=== PATIENT | female | born 1985 ===

== ENCOUNTER 2020-12-18 11:21 | Outpatient (REF) | payer MEDICARE, MEDICAID, SELFPAY ==
[2020-12-19 09:15] LABS: BV Int Neg Control Negative (Negative); BV Int Pos Control Positive (Positive)
[2020-12-20 11:42] LABS: C. trachomatis RNA TMA NOT DETECTED (NOT DETECTED); N. gonorrhoeae RNA TMA NOT DETECTED (NOT DETECTED)
[2020-12-21 02:08] LABS: HPV mRNA E6/E7 rflx Not Detected (Not Detected)
== END 2020-12-18 11:22 | disposition home or self-care (01) ==
LOC: HO.LAB 11:21
PROVIDERS: PCP Family Medicine; Visit Provider Advanced Practice Midwife
DX: R10.2 Pelvic and perineal pain (principal); Z11.51 Encounter for screening for human papillomavirus (HPV); Z87.42 Personal history of other diseases of the female genital tract; Z80.3 Family history of malignant neoplasm of breast
CPT/HCPCS: 36415; 81025; 87480; 87491; 87510; 87591; 87624; 87660; 88142; 99202

== ENCOUNTER 2021-01-22 11:22 | Outpatient (REF) | payer MEDICARE, MEDICAID, SELFPAY ==
--- NOTE | ~2021-01-22 | US_ITS ---
EXAMINATION: US PELVIS COMPLETE US PELVIS TRANSVAGINAL CLINICAL INFORMATION: Pelvic pain. LMP 12/28/2020 COMPARISON: Multiple priors, most recent pelvic ultrasound dated 02/08/2019 TECHNIQUE: Transabdominal and transvaginal imaging was performed. FINDINGS: The uterus is retroverted of normal size and echogenicity measuring 9.4 x 5.4 x 6.3 cm. A regular homogeneous endometrium is identified measuring 1.1 cm. Both ovaries are of normal size and echogenicity. The right measures 4.7 x 2.2 x 2.3 cm for a volume of 12.5 mL. Probable involuting right ovarian corpus luteum measuring up to 2.3 cm. The left measures 1.9 x 2.3 x 1.3 cm for a volume of 3 mL. There is no pelvic free fluid. US/US pelvic complete IMPRESSION: Sonographically unremarkable uterus and endometrium. Probable involuting right ovarian corpus luteum measuring 2.3 cm. No followup imaging recommended. Sonographically unremarkable left ovary.
--- NOTE | ~2021-01-22 | US_ITS ---
EXAMINATION: US PELVIS COMPLETE US PELVIS TRANSVAGINAL CLINICAL INFORMATION: Pelvic pain. LMP 12/28/2020 COMPARISON: Multiple priors, most recent pelvic ultrasound dated 02/08/2019 TECHNIQUE: Transabdominal and transvaginal imaging was performed. FINDINGS: The uterus is retroverted of normal size and echogenicity measuring 9.4 x 5.4 x 6.3 cm. A regular homogeneous endometrium is identified measuring 1.1 cm. Both ovaries are of normal size and echogenicity. The right measures 4.7 x 2.2 x 2.3 cm for a volume of 12.5 mL. Probable involuting right ovarian corpus luteum measuring up to 2.3 cm. The left measures 1.9 x 2.3 x 1.3 cm for a volume of 3 mL. There is no pelvic free fluid. US/US transvaginal IMPRESSION: Sonographically unremarkable uterus and endometrium. Probable involuting right ovarian corpus luteum measuring 2.3 cm. No followup imaging recommended. Sonographically unremarkable left ovary.
== END 2021-01-22 11:23 | disposition home or self-care (01) ==
LOC: HO.US 11:22
PROVIDERS: PCP Family Medicine; Visit Provider Family Medicine
DX: R10.2 Pelvic and perineal pain (principal); Z87.42 Personal history of other diseases of the female genital tract
CPT/HCPCS: 76830; 76856

== ENCOUNTER → 2021-02-05 10:50 | Outpatient (BNVA) | payer MEDICARE, MEDICAID, SELFPAY | PROVIDERS: PCP Family Medicine; Visit Provider Advanced Practice Midwife | DX: R10.2 Pelvic and perineal pain (principal); Z87.42 Personal history of other diseases of the female genital tract; Z80.3 Family history of malignant neoplasm of breast; Z30.09 Encounter for other general counseling and advice on contraception | CPT/HCPCS: 99212 ==

== ENCOUNTER → 2021-04-21 14:15 | Outpatient (BNVA) | payer MEDICARE, MEDICAID, SELFPAY | PROVIDERS: Visit Provider Advanced Practice Midwife | DX: Z30.430 Encounter for insertion of intrauterine contraceptive device (principal); Z30.09 Encounter for other general counseling and advice on contraception | CPT/HCPCS: 58300; 81025; 99212; J7300 ==

== ENCOUNTER 2021-05-01 08:10 | Outpatient (REF) | payer MEDICARE, MEDICAID, SELFPAY ==
--- NOTE | ~2021-05-01 | US_ITS ---
EXAMINATION: US ABDOMEN COMPLETE CLINICAL INFORMATION: Splenomegaly. COMPARISON: Ultrasound abdomen complete 07/28/2016. Ultrasound abdomen limited 01/06/2016. CT abdomen and pelvis 09/19/2015. X-ray abdomen 08/16/2013. MRI abdomen 07/12/2012. TECHNIQUE: Real-time imaging of the abdominal viscera. FINDINGS: PANCREAS: Normal. ABDOMINAL AORTA: The proximal, mid, and distal segments are normal in caliber. INFERIOR VENA CAVA: Visualized portions are normal. LIVER: Normal. The liver is normal in size. The liver contour is normal. Parenchymal echogenicity is normal. No focal hepatic lesion. There is no intrahepatic biliary duct dilatation seen. GALLBLADDER: Surgically absent. COMMON BILE DUCT: Normal in caliber measuring 0.5 cm in diameter. RIGHT KIDNEY: Normal. No hydronephrosis. No renal calculi or focal parenchymal lesions. The kidney measures 11.5 cm in maximum dimension. LEFT KIDNEY: Normal. No hydronephrosis. No renal calculi or focal parenchymal lesions. The kidney measures 12.3 cm in maximum dimension. SPLEEN: Mildly enlarged. The spleen measures 13.8 cm in maximum dimension. This compares with 15.7 cm on ultrasound of 07/28/16, 16.2 cm on 01/09/[address] scan of 09/19/15. FREE FLUID: None. US/US abdomen complete IMPRESSION: 1. Persistent mild splenomegaly with slow interval improvement. 2. Otherwise unremarkable examination.
== END 2021-05-01 08:11 | disposition home or self-care (01) ==
LOC: HO.US 08:10
PROVIDERS: PCP Family Medicine; Visit Provider Internal Medicine Medical Oncology
DX: R16.1 Splenomegaly, not elsewhere classified (principal)
CPT/HCPCS: 76700

== ENCOUNTER → 2021-07-10 09:47 | Outpatient (BNVA) | payer MEDICARE, MEDICAID, SELFPAY | PROVIDERS: Visit Provider Advanced Practice Midwife ==

== ENCOUNTER → 2021-11-27 13:07 | Outpatient (BNVA) | payer MEDICARE, MEDICAID, SELFPAY | PROVIDERS: Visit Provider Advanced Practice Midwife | DX: R10.2 Pelvic and perineal pain (principal); Z97.5 Presence of (intrauterine) contraceptive device; Z87.42 Personal history of other diseases of the female genital tract; Z98.891 History of uterine scar from previous surgery | CPT/HCPCS: 81003; 81025; 99212 ==

== ENCOUNTER 2021-12-21 12:55 | Outpatient (REF) | payer MEDICARE, MEDICAID, SELFPAY ==
--- NOTE | ~2021-12-21 | US_ITS ---
EXAM: Pelvic Ultrasound CLINICAL INDICATION: IUD COMPARISON: Pelvic ultrasound 01/22/2021 TECHNIQUE: The pelvis was evaluated using transabdominal and transvaginal imaging. FINDINGS: The uterus measures 10.2 x 4.6 x 7.3 cm in longitudinal by AP by transverse dimension. The endometrial stripe measures 1.5 cm. IUD identified within the endometrium, however, it is centered within the lower uterine segment with the arms located approximately 2.5 cm below the tip of the fundus. The left ovary measures approximately 2.5 x 1.8 x 2.2 cm and contains an approximately 1 cm cyst versus dominant follicle. The right ovary measures approximately 3.9 x 2.6 x 3.3 cm and contains a simple appearing 2.4 cm cyst. There are no abnormal adnexal masses. There is no free fluid in the pelvis. US/US pelvic and transvaginal IMPRESSION: IUD identified within the endometrium, however, it is centered within the lower uterine segment with the arms located approximately 2.5 cm below the tip of the fundus. Repositioning likely warranted. [employer]TA[employer] SALESPERSON consultation recommended.
== END 2021-12-21 12:56 | disposition home or self-care (01) ==
LOC: HO.US 12:55
PROVIDERS: PCP Family Medicine; Visit Provider Advanced Practice Midwife
DX: R10.2 Pelvic and perineal pain (principal); Z87.42 Personal history of other diseases of the female genital tract; Z98.890 Other specified postprocedural states; Z98.891 History of uterine scar from previous surgery; Z97.5 Presence of (intrauterine) contraceptive device
CPT/HCPCS: 76830; 76856

== ENCOUNTER → 2021-12-22 11:30 | Outpatient (BNVA) | payer MEDICARE, MEDICAID, SELFPAY | PROVIDERS: PCP Family Medicine; Visit Provider Advanced Practice Midwife | DX: T83.9XXA Unspecified complication of genitourinary prosthetic device, implant and graft, initial encounter (principal); Z32.02 Encounter for pregnancy test, result negative | CPT/HCPCS: 81025; 99212 ==

== ENCOUNTER → 2022-04-19 08:56 | Outpatient (BNVA) | payer MEDICARE, MEDICAID, SELFPAY | PROVIDERS: PCP Family Medicine; Visit Provider Advanced Practice Midwife | DX: T83.9XXA Unspecified complication of genitourinary prosthetic device, implant and graft, initial encounter (principal) | CPT/HCPCS: 58301; 99212 ==

== ENCOUNTER 2022-09-01 09:20 | Outpatient (REF) | payer MEDICARE, MEDICAID, SELFPAY ==
--- NOTE | ~2022-09-01 | US_ITS ---
EXAMINATION: US ABDOMEN COMPLETE CLINICAL INFORMATION: Left upper quadrant pain. Check enlarged spleen. COMPARISON: Ultrasound abdomen complete 05/01/2021 and 07/28/2016. CT abdomen and pelvis 09/19/2015. X-ray abdomen 08/16/2013. TECHNIQUE: Real-time imaging of the abdominal viscera. FINDINGS: PANCREAS: Normal. ABDOMINAL AORTA: The proximal, mid, and distal segments are normal in caliber. INFERIOR VENA CAVA: Visualized portions are normal. LIVER: Normal. The liver is normal in size. The liver contour is normal. Parenchymal echogenicity is normal. No focal hepatic lesion. There is no intrahepatic biliary duct dilatation seen. GALLBLADDER: Surgically absent. COMMON BILE DUCT: Normal in caliber measuring 0.6 cm in diameter. RIGHT KIDNEY: Normal. No hydronephrosis. No renal calculi or focal parenchymal lesions. The kidney measures 11.4 cm in maximum dimension. LEFT KIDNEY: Difficult to visualize. No hydronephrosis. No renal calculi or focal parenchymal lesions. The kidney measures 10.8 cm in maximum dimension. SPLEEN: The spleen is slightly enlarged. The spleen measures 13.5 cm in maximum dimension. FREE FLUID: None. US/US abdomen complete IMPRESSION: Slightly enlarged spleen similar to previous exam.
== END 2022-09-01 09:21 | disposition home or self-care (01) ==
LOC: HO.US 09:20
PROVIDERS: PCP Family Medicine; Visit Provider Internal Medicine Medical Oncology
DX: R16.1 Splenomegaly, not elsewhere classified (principal); R10.12 Left upper quadrant pain
CPT/HCPCS: 76700

== ENCOUNTER → 2024-01-09 13:42 | Outpatient (BNVA) | payer MEDICARE, MEDICAID, SELFPAY | PROVIDERS: PCP Family Medicine; Visit Provider Advanced Practice Midwife ==

== ENCOUNTER 2024-02-03 12:58 | Outpatient (AMB) | payer MEDICARE, MEDICAID, SELFPAY ==
--- NOTE | 2024-02-03 13:12 | MHC.OFFVIS ---
Intake Vital Signs 02/03/24 13:26 Height 5 ft 2 in Weight 126 lb BMI 23.0 BP 110/68 Intake Visit Reasons: Mirena Insertion Intake Note: Patient here for IUD insertion Body Maker Machine Setter Required: No Information Interpreted: non-clinical & clinical Director Chemistry: Director Chemistry Present (Roxie Pedro [place]) Accompanied by: Self / Same As Patient Allergies No Known Allergies Allergy (Unknown, Verified 02/03/24 13:29) Is last menstrual period known: Yes Last menstrual period: 01/31/24 HPI Mirena Insertion HPI Details Patient is here for Mirena IUD insertion she says she has a history of endometriosis and somebody talked to her about surgery and also she was talking about a tubal ligation but she was too afraid and she had a Mirena before when she was young but she would like it again and this was discussed at the last visit she also has dermatologic concerns because she gets skin changes with her. Possibly consistent with melasma and she seen a gps field data collector who told her it was related to her hormones but she is wondering more about that and I told her this is a conversation for her gps field data collector that hormonal changes will occur all throughout one's life and all throughout the cycle and it is not possible to completely turn them off they control everything in our body's function in particular in this case she is asking for something hormonal to not get and there will be some side effects from a Mirena IU S in particular I discussed sometimes the decreased libido the decreased periods and other changes that are commonly experienced if she truly has endometriosis then this may make the discomfort of her periods better. It was a very smooth insertion of a Mirena IU S into a 9 cm uterus which sounded extremely smoothly. Her menses was exceptionally heavy today with some clots prior to the insertion. She did say that if this menses was late. Cultures were done just before insertion as they had not been done since 2020. She believes she has a future appointment with Dr. Louis as well to discuss the endometriosis and other issues. She will check on that as well Reviewed to call if she is having fever severe pain any signs or symptoms of expulsion of the Mirena I recommend she not have sex until the end of menses or at least 3 days. [facility] Medical History (Updated 02/03/24 @ 14:18 by Marycruz Redd CNM) Cervical cancer screening History of gallbladder disease delivery delivered Melasma Splenomegaly Gastroesophageal reflux Irritable bowel Dermatitis Depression Surgical History Hx of eye surgery Family History Mother HTN (hypertension) Father Diabetes Maternal Aunt Family history of breast cancer in female Maternal Aunt Family history of breast cancer in female Social History Household Members: Spouse and Children Housing: House Are you a primary healthcare associate to a significant other at home: No Do you presently have visiting nurse or other home services: No Alcohol intake: never Patient Tobacco Use Status: Never used Tobacco service: No Current occupational status: unemployed Gender identity: Female Female Reproductive History Menstrual Age of Menarche: 11 Date of last menstrual period: 01/31/24 Physical Exam Vital Signs: Last Vital Signs BP 110/68 02/03/24 13:26 BMI result Body Mass Index 23.0 Office Procedures IUD Insert/Removal Details Details: ---Patient is here for her IUD insertion. Patient had very heavy menses with clots in vagina clots swabbed out of vagina and testing done for STIs per protocol before insertion of the Mirena. ---The cervix was cleaned with Betadine. Tenaculum was placed on the cervix slowly to minimize cramping. The uterus was sounded slowly and gently she show a measurement of 9 cm. The IUD was removed from its package, after checking identifying information and lot dates and expiration dates and and gently inserted into the os, as per the IUD insertion procedure. The strings were then trimmed to 3-4 centimetres. The tenaculum was removed and gentle pressure applied with a swab, until any bleeding subsided from the tenaculum sites. The speculum was gently removed. The patient sat up. I Reviewed what to expect, and what indications would necessitate a call. Pt to call for fever, untoward pain or cramping. I reviewed any appropriate backup method. Pt to return for recheck as scheduled. [id number] Insertion Procedure code (CPT) selection complete Office Meds Mirena 21 mcg/24 hours (8 yrs) 52 mg intrauterine device Performing Provider: Marycruz Redd CNM [place] [facility] Administered by: Roxie Pedro CMA on 02/03/24 14:11 Dose Route Admin Location Dispensed Lot Number Expiration Date [facility] Senior Sharepoint Developer 1 device intrauterine 1 device [id number] 05/13/26 43700-663-68 [employer] Results AMB Test Urine AMB Test Urine Negative Last Edit by Roxie Pedro CMA on 02/03/24 13:33 Results Reviewed Results Reviewed: Laboratory Last Values Tst Clinic Negative 02/03/24 13:32 Name: Radha Gil Age/Sex: 35/F Attending: Marycruz Redd CNM : 1985 Submitted by: Marycruz Redd CNM Copies to: MR #: [id number] Status: DEP REF Collected: 12/18/20 Location: .LAB Received: 12/19/20 Interpretation Satisfactory for evaluation. Negative for intraepithelial lesion or malignancy. HPV mRNA E6/E7: NOT DETECTED This assay detects E6/E7 viral messenger RNA (mRNA) from 14 high-risk HPV types (16, 18, 31, 33, 35, 39, 45, 51, 52, 56, 58, 59, 66, 68) HPV testing performed by [facility], [place], [place]. See reference laboratory portion of the EMR for entire report. Clinical Information LMP: 11/27/20 Previous PAP test: 01/17/2014, WNL Other history:years since last PAP, 01/17/2014-neg Material Received ThinPrep Cervical Electronically Signed By: Nereyda Ramon 12/26/20 [id number] The Pap Test is a screening procedure with the inherent possibility of both false negative and false positive results. Results should be interpreted in the context of historic and current clinical findings. Reliability of the Pap Test is enhanced by performing the test on a regular repetitive basis. Patient: Venu Page 1 of 1 Last screening for STIs done in 2020 will repeat today before insertion Assessment & Plan Assessment & Plan (1) control counseling: Code(s): Z30.09 - Encounter for other general counseling and advice on contraception (2) Presence of 52 mg levonorgestrel-releasing intrauterine device (IUD): Comment: Inserted new 1 on 02/03/2024. Code(s): Z97.5 - Presence of (intrauterine) contraceptive device (3) Hx of endometriosis: Code(s): Z87.42 - Personal history of other diseases of the female genital tract (4) Cervical cancer screening: Comment: paps :12/18/20=sat/neg/neg HPV.-next in 5 yrs.. (01/17/14=neg, 04/19/12=neg, ) Code(s): Z12.4 - Encounter for screening for malignant neoplasm of cervix Plan Patient is here for Mirena IUD insertion she says she has a history of endometriosis and somebody talked to her about surgery and also she was talking about a tubal ligation but she was too afraid and she had a Mirena before when she was young but she would like it again and this was discussed at the last visit she also has dermatologic concerns because she gets skin changes with her. Possibly consistent with melasma and she seen a gps field data collector who told her it was related to her hormones but she is wondering more about that and I told her this is a conversation for her gps field data collector that hormonal changes will occur all throughout one's life and all throughout the cycle and it is not possible to completely turn them off they control everything in our body's function in particular in this case she is asking for something hormonal to not get and there will be some side effects from a Mirena IU S in particular I discussed sometimes the decreased libido the decreased periods and other changes that are commonly experienced if she truly has endometriosis then this may make the discomfort of her periods better. It was a very smooth insertion of a Mirena IU S into a 9 cm uterus which sounded extremely smoothly. Her menses was exceptionally heavy today with some clots prior to the insertion. She did say that if this menses was late. Cultures were done just before insertion as they had not been done since 2020. She believes she has a future appointment with Dr. Louis as well to discuss the endometriosis and other issues. She will check on that as well Reviewed to call if she is having fever severe pain any signs or symptoms of expulsion of the Mirena I recommend she not have sex until the end of menses or at least 3 days. Orders: Orders AMB HCG Urine Test Today Z32.02 - Encounter for test, result negative AMB IUD Insertion/Removal - Practice Supplied Today Z30.430 - Encounter for insertion of intrauterine contraceptive device CT NG by PCR Today Z30.430 - Encounter for insertion of intrauterine contraceptive device Coding Level of Care Code Est Pt Level 3 (23307) Diagnoses control counseling Z30.09 Presence of 52 mg levonorgestrel-releasing intrauterine device (IUD) Z97.5 Hx of endometriosis Z87.42 Cervical cancer screening Z12.4 CPT Codes Details - CPT: 85946-ZFV Insertion ([id number])
[2024-02-03 13:26] VITALS: BP 110/68; BMI 23.0
== END 2024-02-03 14:16 | disposition home or self-care (01) ==
LOC: HO.HWSM 12:58
PROVIDERS: PCP Family Medicine; Visit Provider Advanced Practice Midwife
DX: Z30.09 Encounter for other general counseling and advice on contraception (principal); Z97.5 Presence of (intrauterine) contraceptive device; Z87.42 Personal history of other diseases of the female genital tract; Z30.430 Encounter for insertion of intrauterine contraceptive device
CPT/HCPCS: 58300; 99213

== ENCOUNTER 2024-02-03 12:58 | Outpatient (REF) | payer MEDICARE, MEDICAID, SELFPAY ==
[2024-02-04 02:31] LABS: CT PCR NOT DETECTED (Not Detect.); NG PCR NOT DETECTED (Not Detect.)
== END 2024-02-03 12:59 | disposition home or self-care (01) ==
LOC: HO.LNP 12:58
PROVIDERS: PCP Family Medicine; Visit Provider Advanced Practice Midwife
DX: Z30.430 Encounter for insertion of intrauterine contraceptive device (principal); Z87.42 Personal history of other diseases of the female genital tract; Z20.2 Contact with and (suspected) exposure to infections with a predominantly sexual mode of transmission
CPT/HCPCS: 0353U; 58300; 99212; J7298

== ENCOUNTER 2024-03-13 14:36 | Outpatient (REF) | payer MEDICARE, MEDICAID, SELFPAY ==
--- NOTE | ~2024-03-13 | MM_ITS ---
EXAMINATION: MM SCREENING DIGITAL BREAST TOMOSYNTHESIS, BILATERAL CLINICAL INFORMATION: Screening. Asymptomatic. COMPARISON: Mammography: There are no prior mammograms for comparison. TECHNIQUE: Digital breast tomosynthesis is performed in both the craniocaudal and mediolateral oblique views along with computer-aided detection (CAD). Synthesized 2D images are generated from the tomosynthesis. FINDINGS: The breasts are heterogeneously dense, which may obscure small masses (ACR BI-RADS breast composition Category c). There are no significant masses, abnormal calcifications, or other abnormalities. MM/MM tomosynthesis screening BI IMPRESSION: No mammographic evidence of malignancy. ASSESSMENT: BI-RADS BI-RADS 1 - Negative RECOMMENDATION: Routine annual mammography screening. 1 year F/U This examination should not preclude the clinical evaluation of a suspicious palpable abnormality. This patient's information was entered into a reminder system with a target due date for their next mammogram.
== END 2024-03-13 14:37 | disposition home or self-care (01) ==
LOC: HO.MAMMO 14:36
PROVIDERS: PCP Family Medicine; Visit Provider Family Medicine
DX: Z12.31 Encounter for screening mammogram for malignant neoplasm of breast (principal)
CPT/HCPCS: 77063; 77067

== ENCOUNTER → 2024-03-13 15:00 | Outpatient (BNV) | payer MEDICARE, MEDICAID, SELFPAY | PROVIDERS: PCP Family Medicine; Visit Provider Radiology Diagnostic Radiology | DX: Z12.31 Encounter for screening mammogram for malignant neoplasm of breast (principal) | CPT/HCPCS: 77063; 77067 ==

== ENCOUNTER → 2024-03-26 14:25 | Outpatient (BNVA) | payer MEDICARE, MEDICAID, SELFPAY | PROVIDERS: PCP Family Medicine; Visit Provider Advanced Practice Midwife | DX: Z30.431 Encounter for routine checking of intrauterine contraceptive device (principal); Z12.4 Encounter for screening for malignant neoplasm of cervix | CPT/HCPCS: 99212 ==

== ENCOUNTER 2024-05-03 14:24 | Outpatient (AMB) | payer MEDICARE, MEDICAID, SELFPAY ==
[2024-05-03 14:30] VITALS: BP 124/82; BMI 24.0
--- NOTE | 2024-05-03 14:30 | A.OFFVIS_ITS ---
Vital Signs 05/03/24 14:30 Height 5 ft 2 in Weight 131 lb 8 oz BMI 24.0 BP 124/82 Blood Pressure Location Lt brachial Position Sitting Intake Visit Reasons: Consult endometriosis/DO NOT RS Cat Cracker Operator Required: Yes Cat Cracker Operator Language: Concrete Engineer Name: Roxie AVILA Information Interpreted: non-clinical & clinical Spiral Spring Winder: Spiral Spring Winder Present (Roxie AVILA) Accompanied by: Self / Same As Patient Allergies No Known Allergies Allergy (Unknown, Verified 05/03/24 14:33) HPI Comments Details: Presenting complaining of left lower abdominal tender mass. The patient has been diagnosed with endometriosis by a rectus muscle ultrasound guidance biopsy in 2016. The patient states that her rectus muscle mass gets bigger around her menstrual cycle, is most tender around her menstrual cycle and improves afterwards. The patient has recently had Mirena IUD, since then her menstrual cycles suppressed but her pain is mainly on the side of the left lower rectus muscle mass. Last co testing was in 01/07 was negative, last mammogram was BI-RADS 1 in 04/06 [facility] Medical History Cervical cancer screening History of gallbladder disease delivery delivered Melasma Splenomegaly Gastroesophageal reflux Irritable bowel Dermatitis Depression Surgical History Hx of eye surgery Family History Mother HTN (hypertension) Father Diabetes Maternal Aunt Family history of breast cancer in female Maternal Aunt Family history of breast cancer in female Social History Household Members: Spouse and Children Housing: House Are you a primary respiratory care program director to a significant other at home: No Do you presently have visiting nurse or other home services: No Alcohol intake: never Patient Tobacco Use Status: Never used Tobacco service: No Current occupational status: unemployed Gender identity: Female Female Reproductive History Menstrual Age of Menarche: 11 Date of last menstrual period: 04/16/24 control method: progestin IUCD Total pregnancies: 2 Full term: 2 Number of Living Children: 2 Date of last pap smear: 12/19/20 History of abnormal pap smear: No History of STI: No Date of Mammogram: 03/13/24 History of abnormal mammogram: No Review of Systems Const All systems reviewed & are unremarkable except as noted in HPI and below Physical Exam Vital Signs: Last Vital Signs BP 124/82 05/03/24 14:30 BMI result Body Mass Index 24.0 GI Auscultation: normal bowel sounds and other (Left lower 2 cm abdominal rectus mass tender) General: Yes no CVA tenderness External Female Exam: normal external appearance and normal appearance of the urethra Speculum Exam - Vagina: normal appearance of the vagina, normal palpation, no lesions and no masses Speculum Exam - Cervix: normal appearance of the cervix, normal palpation, no lesions, no masses and nontender Bimanual exam- vagina & uterus: normal bimanual exam, normal palpation, uterine size normal, normal palpation, uterine shape normal, No Cervical tenderness present and non-tender Bimanual Exam- Adnexa, other: normal adnexae Back/Spine/Pelvis Back: no CVA tenderness Assessment & Plan Assessment & Plan (1) Muscle mass: Comment: Left lower abdominal rectus abdominis, endometriosis Code(s): M62.89 - Other specified disorders of muscle Category: Medical Plan: Will order CT scan assess the left lower abdominal rectus muscle endometrial mass and rule out other abdominal/pelvic causes for her pain (2) Pelvic pain: Code(s): R10.2 - Pelvic and perineal pain Category: Medical Plan: Urine dip and test done in the office were both negative. GC and chlamydia taken and CT scan of abdomen and pelvis ordered. Discussed with the patient the differential diagnosis of pelvic pain including but not limited to adnexal, uterine masses, pelvic infections (PID), GI the (Irritable bowel syndrome, diverticulitis, others), musculoskeletal, myofascial pain abdominal wall , adhesions, endometriosis, psychological and others causes. Will check results and treat accordingly. All questions answered, the patient verbalized understanding. Instructed the patient to schedule follow-up appointment in 2 weeks Orders: Orders CT NG by PCR Today Z87.42 - Personal history of other diseases of the female genital tract CT abdomen pelvis wo/w IV con Today R10.2 - Pelvic and perineal pain Coding Level of Care Code Est Pt Level 3 (49939) Diagnoses Muscle mass M62.89 Pelvic pain R10.2
== END 2024-05-03 15:11 | disposition home or self-care (01) ==
LOC: HO.HWS 14:24
PROVIDERS: PCP Family Medicine; Visit Provider Obstetrics & Gynecology
DX: M62.89 Other specified disorders of muscle (principal); R10.2 Pelvic and perineal pain; Z32.02 Encounter for pregnancy test, result negative
CPT/HCPCS: 99213

== ENCOUNTER 2024-05-03 14:24 | Outpatient (REF) | payer MEDICARE, MEDICAID, SELFPAY ==
[2024-05-03 18:37] LABS: CT PCR NOT DETECTED (Not Detect.); NG PCR NOT DETECTED (Not Detect.)
== END 2024-05-03 14:25 | disposition home or self-care (01) ==
LOC: HO.LNP 14:24
PROVIDERS: PCP Family Medicine; Visit Provider Obstetrics & Gynecology
DX: M62.89 Other specified disorders of muscle (principal); R10.2 Pelvic and perineal pain; N80.9 Endometriosis, unspecified; Z87.42 Personal history of other diseases of the female genital tract
CPT/HCPCS: 0353U; 81002; 81025; 99212

== ENCOUNTER 2024-06-28 08:35 | Outpatient (REF) | payer MEDICARE, MEDICAID, SELFPAY ==
[2024-06-28 09:47] LABS: Blood Urea Nitrogen 11 mg/dL (9-16); Estimated Glomerular Filt Rate > 60
== END 2024-06-28 08:36 | disposition home or self-care (01) ==
LOC: HO.LAB 08:35
PROVIDERS: PCP Family Medicine; Visit Provider Obstetrics & Gynecology
DX: M62.89 Other specified disorders of muscle (principal)
CPT/HCPCS: 36415; 82565; 84520

== ENCOUNTER 2024-06-29 06:26 | Outpatient (REF) | payer MEDICARE, MEDICAID, SELFPAY ==
--- NOTE | ~2024-06-29 | CT_ITS ---
EXAMINATION: CT ABDOMEN AND PELVIS WITH CONTRAST CLINICAL INFORMATION: Pelvic and perineal pain COMPARISON: Pelvic ultrasound December 21, 2021 TECHNIQUE: Multiple axial images were obtained from the superior aspect of the liver through the pubic symphysis after the administration of 85 mL of intravenous Omnipaque 350. Images were evaluated on independent dedicated 3-D workstation and 3-D images were reconstructed with concurrent radiologist supervision and subsequently interpreted. Oral contrast was administered. This CT examination was performed using dose optimization techniques as appropriate, variously including the following: *Automated exposure control *Adjustment of mA and/or kV according to patient size (this includes techniques or standardized protocols for targeted exams where dose is matched to indication/reason for exam; i.e. extremities or head) *Use of iterative reconstruction technique DLP: Degenerative mGy-cm FINDINGS: LUNG BASES: The visualized lung bases are clear. CARDIOMEDIASTINUM: The visualized heart is normal in size without pericardial effusion. No coronary artery calcification. LIVER: Homogeneous in attenuation. Normal in size. GALLBLADDER: Absent BILIARY SYSTEM: No intrahepatic or extrahepatic biliary dilation. PANCREAS: Homogeneous in attenuation. SPLEEN: Enlarged measuring 15.5 cm. GENITOURINARY: Bilateral kidneys demonstrate symmetric enhancement. No perinephric fluid collection. No renal calculi. No hydroureteronephrosis. ADRENAL GLANDS: Unremarkable. REPRODUCTIVE: Uterus and and bilateral adnexa are unremarkable. Intrauterine device noted in situ. GASTROINTESTINAL: The visualized alimentary tract is normal in course. No evidence of obstruction. APPENDIX: The appendix is seen in its entirety and is unremarkable. PERITONEUM: No pneumoperitoneum. No intra-abdominal fluid collection. VASCULATURE: The abdominal aorta is normal in course and caliber. LYMPH NODES: No pathologically enlarged abdominal or pelvic lymph nodes. SOFT TISSUES/MUSCULOSKELETAL: Anterior pelvic wall scarring, likely from prior section. No acute fracture or focal osseous lesions. CT/CT abdomen pelvis w IV con IMPRESSION: 1. No acute abdominal or pelvic pathology. 2. Splenomegaly measuring 16 cm per Fleischner guidelines were followed. Electronically signed by: Dmitriy Vasquez DO 07/16/2024 10:41 PM EDT
[2024-06-29] MEDS: Barium Sulfate Oral (Berry) 450 ML ORAL.SUSP 900 ML PO (09:20)
[2024-06-29] MEDS: iohexoL 350 MG/ML 100 ML INFUS..BTL 85 ML IV (09:21)
== END 2024-06-29 06:27 | disposition home or self-care (01) ==
LOC: HO.CT 06:26
PROVIDERS: PCP Family Medicine; Visit Provider Obstetrics & Gynecology
DX: R10.2 Pelvic and perineal pain (principal)
CPT/HCPCS: 74177; Q9967

== ENCOUNTER 2024-07-18 13:36 | Outpatient (AMB) | payer MEDICARE, MEDICAID, SELFPAY ==
--- NOTE | 2024-07-18 13:48 | A.OFFVIS_ITS ---
Vital Signs 07/18/24 13:49 Height 5 ft 2 in Weight 130 lb 1.164 oz BMI 23.8 Intake Visit Reasons: CT follow up Surgical Elastic Knitter Required: Yes Surgical Elastic Knitter Language: Java Support Engineer Services: Surgical Elastic Knitter Present (in person) Surgical Elastic Knitter Name: Roxie AVILA Information Interpreted: non-clinical & clinical Accompanied by: Self / Same As Patient Allergies No Known Allergies Allergy (Unknown, Verified 07/18/24 13:50) Is last menstrual period known: No (mirena) HPI Comments Details: Presenting for follow-up regarding CT scan. Recent CT scan done showed the following: ' IMPRESSION: 1. No acute abdominal or pelvic pathology. 2. Splenomegaly measuring 16 cm The patient had a core biopsy of an inferior left rectus muscle mass by IR on 01/26/2016 showing pathology of endometriosis The patient gives a history of cyclic pain and enlargement of a mass on the left inferior rectus muscle the decrease in size and pain after her menstrual cycle PFSH Medical History Cervical cancer screening History of gallbladder disease delivery delivered Melasma Splenomegaly Gastroesophageal reflux Irritable bowel Dermatitis Depression Surgical History Hx of eye surgery Family History Mother HTN (hypertension) Father Diabetes Maternal Aunt Family history of breast cancer in female Maternal Aunt Family history of breast cancer in female Social History Household Members: Spouse and Children Housing: House Are you a primary resident care provider to a significant other at home: No Do you presently have visiting nurse or other home services: No Alcohol intake: never Patient Tobacco Use Status: Never used Tobacco service: No Current occupational status: unemployed Gender identity: Female Female Reproductive History Menstrual Age of Menarche: 11 Assessment & Plan Assessment & Plan (1) Muscle mass: Comment: Left lower abdominal rectus abdominis, endometriosis on pathology Code(s): M62.89 - Other specified disorders of muscle Category: Medical Plan: Discussed with the patient the results of the CT scan did not show a rectus muscle mass. Since the patient has a pathology proven core biopsy of the inferior left muscle mass on 01/16/2016, recommend soft tissue imaging of the left inferior rectus muscle if a muscle mass is identified then will refer to general surgery for excision since the patient is having a lot of pain premenstrually from this mass. All questions answered, the patient verbalized understanding Orders: Orders US extremity nonvascular Today M62.89 - Other specified disorders of muscle Coding Level of Care Code Est Pt Level 3 (32662) Diagnoses Muscle mass M62.89
[2024-07-18 13:49] VITALS: BMI 23.8
== END 2024-07-18 14:43 | disposition home or self-care (01) ==
LOC: HO.HWS 13:37
PROVIDERS: PCP Family Medicine; Visit Provider Obstetrics & Gynecology
DX: M62.89 Other specified disorders of muscle (principal)
CPT/HCPCS: 99213

== ENCOUNTER → 2024-07-18 13:36 | Outpatient (BNVA) | payer MEDICARE, MEDICAID, SELFPAY | PROVIDERS: PCP Family Medicine; Visit Provider Obstetrics & Gynecology | DX: M62.89 Other specified disorders of muscle (principal) | CPT/HCPCS: 99212 ==

== ENCOUNTER 2024-07-20 15:24 | Outpatient (REF) | payer MEDICARE, MEDICAID, SELFPAY ==
--- NOTE | ~2024-07-20 | US_ITS ---
EXAMINATION: US PELVIC, LIMITED/FOLLOW UP CLINICAL INFORMATION: Left lower quadrant palpable mass COMPARISON: CT abdomen from 06/29/2024 TECHNIQUE: Grayscale and color images in the left lower quadrant of the abdomen FINDINGS: Within the region of interest in the left lower quadrant is a solid focus with minimal internal vascularity measuring 4.5 x 1.2 x 4.0 cm, nonspecific. US/US pelvic limited IMPRESSION: Within the region of interest in the left lower quadrant is a solid focus with minimal internal vascularity measuring 4.5 x 1.2 x 4.0 cm, nonspecific. Electronically signed by: Marci Morales MD 07/28/2024 04:22 PM EDT
== END 2024-07-20 15:25 | disposition home or self-care (01) ==
LOC: HO.US 15:24
PROVIDERS: PCP Family Medicine; Visit Provider Obstetrics & Gynecology
DX: M62.89 Other specified disorders of muscle (principal)
CPT/HCPCS: 76857

== ENCOUNTER 2024-08-02 11:51 | Outpatient (AMB) | payer MEDICARE, MEDICAID, SELFPAY ==
--- NOTE | 2024-08-02 12:00 | A.OFFVIS_ITS ---
Vital Signs 08/02/24 12:01 Height 5 ft 2 in Weight 130 lb 1.164 oz BMI 23.8 Intake Visit Reasons: U/S results Floor Worker Required: Yes Floor Worker Language: Automotive Worker Services: Floor Worker Present (in person) Floor Worker Name: Roxie AVILA Information Interpreted: non-clinical & clinical Accompanied by: Self / Same As Patient Allergies No Known Allergies Allergy (Unknown, Verified 08/02/24 12:02) Is last menstrual period known: No (mirena) HPI Comments Details: Presenting for follow-up after ultrasound of the abdominal wall which was done recently and showed the following: IMPRESSION: Within the region of interest in the left lower quadrant is a solid focus with minimal internal vascularity measuring 4.5 x 1.2 x 4.0 cm, nonspecific. The patient had a core biopsy of an inferior left rectus muscle mass by IR at [facility] on 01/26/2016 showing pathology of endometriosis PFSH Medical History Cervical cancer screening History of gallbladder disease delivery delivered Melasma Splenomegaly Gastroesophageal reflux Irritable bowel Dermatitis Depression Surgical History Hx of eye surgery Family History Mother HTN (hypertension) Father Diabetes Maternal Aunt Family history of breast cancer in female Maternal Aunt Family history of breast cancer in female Social History Household Members: Spouse and Children Housing: House Are you a primary hospice patient care secretary to a significant other at home: No Do you presently have visiting nurse or other home services: No Alcohol intake: never Patient Tobacco Use Status: Never used Tobacco service: No Current occupational status: unemployed Gender identity: Female Female Reproductive History Menstrual Age of Menarche: 11 Review of Systems Const All systems reviewed & are unremarkable except as noted in HPI and below Reports as per HPI and Reports no additional complaints GI Reports no additional complaints Reports no additional complaints Physical Exam Vital Signs: BMI result Body Mass Index 23.8 Assessment & Plan Assessment & Plan (1) Muscle mass: Comment: endometriosis Code(s): M62.89 - Other specified disorders of muscle Category: Medical Plan: Discussed with the patient the finding on ultrasound showing a 4.5 x 4 cm muscle mass. Discussed with the patient possible causes including endometriosis. Will refer to general surgery for further management Orders: Referrals General Surgery Referral M62.89 - Other specified disorders of muscle Coding Level of Care Code Est Pt Level 3 (99746) Diagnoses Muscle mass M62.89
[2024-08-02 12:01] VITALS: BMI 23.8
== END 2024-08-02 12:27 | disposition home or self-care (01) ==
LOC: HO.HWS 11:51
PROVIDERS: PCP Family Medicine; Visit Provider Obstetrics & Gynecology
DX: M62.89 Other specified disorders of muscle (principal)
CPT/HCPCS: 99213

== ENCOUNTER → 2024-08-02 11:51 | Outpatient (BNVA) | payer MEDICARE, MEDICAID, SELFPAY | PROVIDERS: PCP Family Medicine; Visit Provider Obstetrics & Gynecology | DX: M62.89 Other specified disorders of muscle (principal) | CPT/HCPCS: 99212 ==

== ENCOUNTER 2024-08-08 07:56 | Outpatient (AMB) | payer MEDICARE, MEDICAID, SELFPAY ==
--- NOTE | 2024-08-08 08:16 | MHC.OFFVIS ---
Vital Signs 08/08/24 08:22 Height 5 ft 2 in Weight 131 lb BMI 24.0 BP 123/67 Blood Pressure Location Rt brachial Position Sitting Pulse 68 Intake Visit Reasons: Enlarging mass~ lower abdomen Intake Note: Patient referred by Dr. Louis for enlarging mass on lower abdomen. Patient c/o: on and off pain after menses. Inflammation on abdomen when pain present. Pelvis US: 07-20-2024. Protective Service Specialist Required: Yes Protective Service Specialist Name: Nimo MARTINEZ Accompanied by: Self / Same As Patient Allergies No Known Allergies Allergy (Unknown, Verified 08/08/24 08:20) HPI Comments Details: Patient presents with a symptomatic soft tissue mass along her incision site. This has been present for approximately 2 years time. His increasing in size and become more symptomatic. Is related to her menses in that it becomes very symptomatic during her early part of her. . Clinically this is consistent with an endometrioma. Patient has had a x2. She also had abdominoplasty. Chart was reviewed and patient evaluated [facility] Medical History (Updated 08/08/24 @ 08:21 by AUSTIN Pat) Cervical cancer screening History of gallbladder disease delivery delivered Melasma Splenomegaly Gastroesophageal reflux Irritable bowel Dermatitis Depression Surgical History (Updated 08/08/24 @ 08:47 by Jai Hobson MD) Hx of eye surgery Family History Mother HTN (hypertension) Father Diabetes Maternal Aunt Family history of breast cancer in female Maternal Aunt Family history of breast cancer in female Social History Household Members: Spouse and Children Housing: House Are you a primary hearing care professional to a significant other at home: No Do you presently have visiting nurse or other home services: No Alcohol intake: never Patient Tobacco Use Status: Never used Tobacco service: No Current occupational status: unemployed Gender identity: Female Female Reproductive History Menstrual Age of Menarche: 11 Physical Exam Vital Signs: Last Vital Signs Pulse 68 08/08/24 08:22 BP 123/67 08/08/24 08:22 BMI result Body Mass Index 24.0 Chest Other: Chest breath sounds bilaterally, HS 1 in 2 GI Other: Abdomen mildly corpulent, soft, benign. scar. Just to the left of midline a deep soft tissue mass measuring roughly 3 x 3 cm which is the patient's area of concern. Mildly tender to palpation. Firm. Assessment & Plan Assessment & Plan (1) Endometriosis of the anterior abdominal wall, unspecified depth: Code(s): N80.C19 - Endometriosis of the anterior abdominal wall, unspecified depth Category: Surgical Plan As noted above, this is highly likely an endometrioma related to the patient's prior C-sections. Therapeutic options are either observation or excision. Patient would like to have this removed because it was very symptomatic. Risks, benefits, alternatives of excision of abdominal wall endometrioma reviewed with the patient included but not limited to bleeding, infection, recurrence, numbness, pain, scarring and the patient wished to proceed. All questions answered. Arrangements were made for this. Coding Level of Care Code New Pt Level 5 (41609) Diagnoses Endometriosis of the anterior abdominal wall, unspecified depth N80.C19
[2024-08-08 08:22] VITALS: BP 123/67; PULSE 68; BMI 24.0
== END 2024-08-08 08:40 | disposition home or self-care (01) ==
PROVIDERS: PCP Family Medicine; Referring Provider Obstetrics & Gynecology; Visit Provider Surgery
DX: N80.C19 Endometriosis of the anterior abdominal wall, unspecified depth (principal)
CPT/HCPCS: 99204

== ENCOUNTER → 2024-08-08 07:56 | Outpatient (BNVA) | payer MEDICARE, MEDICAID, SELFPAY | PROVIDERS: PCP Family Medicine; Referring Provider Obstetrics & Gynecology; Visit Provider Surgery | DX: N80.C19 Endometriosis of the anterior abdominal wall, unspecified depth (principal) | CPT/HCPCS: 99202 ==

== ENCOUNTER 2024-08-17 14:19 | Outpatient (AMB) | payer MEDICARE, MEDICAID, SELFPAY ==
--- NOTE | 2024-08-17 14:38 | A.OFFVIS_ITS ---
Vital Signs 08/17/24 14:40 Height 5 ft 2 in Weight 131 lb BMI 24.0 BP 122/72 Intake Visit Reasons: IUD removal Information Interpreted: clinical only Word Processing Machine Operator: Word Processing Machine Operator Present Allergies No Known Allergies Allergy (Unknown, Verified 08/17/24 14:41) Medication List - Last Reconciled 08/17/24 by Marycruz Redd CNM cholecalciferol (vitamin D3) (Vitamin D3) 50 mcg PO DAILY hydroxyzine pamoate 50 mg PO Q6H PRN ibuprofen 600 mg PO Q8H PRN levonorgestrel (Mirena) intrauterine sertraline 75 mg PO QAM tretinoin 0.025% appl topical BEDTIME Is last menstrual period known: Yes Last menstrual period: 08/11/24 Do you need a note to return to daycare/school/sports/work: No HPI HPI IUD removal: Details: Patient is here because she called yesterday for an appointment to have her Mirena IUD removed it was inserted in January to do help deal with her 2 weeks misery with her periods offset by 2 weeks that she felt fine in her periods she has a long-term history of endometriosis proven, and she recently had a biopsy of a mass that showed that there was endometriosis on the muscle mass. She was sent to general surgery with a view towards removal of the endometriosis and she says she discussed it with the surgeon and she decided yet she did not want any surgery. However she is miserable with the Mirena she says now instead of having 2 weeks of misery she has spotting and lingering symptoms that last longer and she is absolutely begging to have it taken out today she has her period today and she absolutely wants it taken out I informed the patient that I did not think that this is a pulido course of action for her to remove the Mirena IU S without a very detailed plan that would have to be made with fire extinguisher sprinkler inspector to discuss what else she would do to manage her endometriosis. She insists that she will either take Tylenol or Motrin and live with it and she is begging to have the Mirena taken out today. Previous visits discussing placement of the Mirena for her painful menses with a history of endometriosis were all reviewed as well as recent visits with Dr. Louis and discussions of endometrial implants elsewhere and referrals for this.. [facility] Medical History Cervical cancer screening History of gallbladder disease delivery delivered Melasma Splenomegaly Gastroesophageal reflux Irritable bowel Dermatitis Depression Surgical History Hx of eye surgery Family History Mother HTN (hypertension) Father Diabetes Maternal Aunt Family history of breast cancer in female Maternal Aunt Family history of breast cancer in female Social History Household Members: Spouse and Children Housing: House Are you a primary rn homecare to a significant other at home: No Do you presently have visiting nurse or other home services: No Alcohol intake: never Patient Tobacco Use Status: Never used Tobacco service: No Current occupational status: unemployed Gender identity: Female Female Reproductive History Menstrual Age of Menarche: 11 Duration of menses: 6-7 days Date of last menstrual period: 08/11/24 control method: progestin IUCD Total pregnancies: 2 Date of last pap smear: 12/19/20 (negative) Physical Exam Vital Signs: Last Vital Signs BP 122/72 08/17/24 14:40 BMI result Body Mass Index 24.0 Other: Speculum placed vagina pink and moist with dark brown end of menses clotty material nulliparous cervix visualized with Mirena string extending about 1-2 cm string grasped with ring forceps and when patient gave a cough on the count of 3 the Mirena IU S was easily removed the patient is happy. Office Procedures IUD Insert/Removal Details Details: Please see discussions in HPI and plan as well patient was very clear after discussion and before it as well that she wanted have the Mirena removed she is not happy with the changes to her cycles and feels like she is uncomfortable more of the time now than she was even when she was in misery for 2 weeks of her of the month. She has a longstanding history of endometriosis please see the previous notes with Dr. Louis regarding this. Patient was insistent she wanted to have the Mirena removed today her periods started last Tuesday she will use condoms she will take either Tylenol or ibuprofen for pain she is ready to accept worsening of her cycle again. Speculum was placed patient is at the end of her menses with dark brown clotty material in cervix and coming from os Mirena string easily visible in os extending about 1-2 cm from cervix.. Strings were grasped with ring forceps and when patient gave a cough on the count of 3 the IUD was easily removed the patient is happy. [id number] Removal Procedure code (CPT) selection complete Results Reviewed Results Reviewed: Name: Radha Gil Age/Sex: 35/F Attending: Marycruz Redd CNM : 1985 Submitted by: Marycruz Redd CNM Copies to: MR #: [id number] Status: DEP REF Collected: 12/18/20 Location: .LAB Received: 12/19/20 Interpretation Satisfactory for evaluation. Negative for intraepithelial lesion or malignancy. HPV mRNA E6/E7: NOT DETECTED This assay detects E6/E7 viral messenger RNA (mRNA) from 14 high-risk HPV types (16, 18, 31, 33, 35, 39, 45, 51, 52, 56, 58, 59, 66, 68) HPV testing performed by [facility], [place], [place]. See reference laboratory portion of the EMR for entire report. Clinical Information LMP: 11/27/20 Previous PAP test: 01/17/2014, WNL Other history:years since last PAP, 01/17/2014- neg Material Received ThinPrep Cervical Electronically Signed By: Nereyda Ramon 12/26/20 0133 The Pap Test is a screening procedure with the inherent possibility of both false negative and false positive results. Results should be interpreted in the context of historic and current clinical findings. Reliability of the Pap Test is enhanced by performing the test on a regular repetitive basis. Patient: Venu Page [address] [address] [address] Scan Report Signed Patient: Radha Gil MR#: [id number] : 1985 Acct:[id number] Age/Sex: 39 / F ADM Date: 06/29/24 Loc: HO.CT Attending Dr: Hari Louis MD Ordering Physician: Hari Louis MD Date of Service: 06/29/24 Procedure(s): CT abdomen pelvis w IV con Accession Number(s): [id number] cc: Mary Danielson DO; Hari Louis MD~ EXAMINATION: CT ABDOMEN AND PELVIS WITH CONTRAST CLINICAL INFORMATION: Pelvic and perineal pain COMPARISON: Pelvic ultrasound December 21, 2021 TECHNIQUE: Multiple axial images were obtained from the superior aspect of the liver through the pubic symphysis after the administration of 85 mL of intravenous Omnipaque 350. Images were evaluated on independent dedicated 3-D workstation and 3-D images were reconstructed with concurrent radiologist supervision and subsequently interpreted. Oral contrast was administered. This CT examination was performed using dose optimization techniques as appropriate, variously including the following: *Automated exposure control *Adjustment of mA and/or kV according to patient size (this includes techniques or standardized protocols for targeted exams where dose is matched to indication/reason for exam; i.e. extremities or head) *Use of iterative reconstruction technique DLP: Degenerative mGy-cm FINDINGS: LUNG BASES: The visualized lung bases are clear. CARDIOMEDIASTINUM: The visualized heart is normal in size without pericardial effusion. No coronary artery calcification. LIVER: Homogeneous in attenuation. Normal in size. GALLBLADDER: Absent BILIARY SYSTEM: No intrahepatic or extrahepatic biliary dilation. PANCREAS: Homogeneous in attenuation. SPLEEN: Enlarged measuring 15.5 cm. GENITOURINARY: Bilateral kidneys demonstrate symmetric enhancement. No perinephric fluid collection. No renal calculi. No hydroureteronephrosis. ADRENAL GLANDS: Unremarkable. REPRODUCTIVE: Uterus and and bilateral adnexa are unremarkable. Intrauterine device noted in situ. GASTROINTESTINAL: The visualized alimentary tract is normal in course. No evidence of obstruction. APPENDIX: The appendix is seen in its entirety and is unremarkable. PERITONEUM: No pneumoperitoneum. No intra-abdominal fluid collection. VASCULATURE: The abdominal aorta is normal in course and caliber. LYMPH NODES: No pathologically enlarged abdominal or pelvic lymph nodes. SOFT TISSUES/MUSCULOSKELETAL: Anterior pelvic wall scarring, likely from prior section. No acute fracture or focal osseous lesions. CT/CT abdomen pelvis w IV con IMPRESSION: 1. No acute abdominal or pelvic pathology. 2. Splenomegaly measuring 16 cm per Fleischner guidelines were followed. Electronically signed by: Dmitriy Vasquez DO 07/16/2024 10:41 PM EDT RP Dictated By: Dmitriy Vasuqez Signed By: <Electronically signed by Dmitriy Vasquez in [facility]> 07/16/242240 DD/ 2 TD/TT: 06/29/24923 Business Applications Manager: Patient: Radha Gil MR#: [id number] : 1985 Acct:[id number] Age/Sex: 39 / F ADM Date: 07/20/24 Loc: HO.US Attending Dr: Hari Louis MD Ordering Physician: Hari Louis MD Date of Service: 07/20/24 Procedure(s): US pelvic limited Accession Number(s): [id number] cc: Mary Danielson DO; Hari Louis MD~ EXAMINATION: US PELVIC, LIMITED/FOLLOW UP CLINICAL INFORMATION: Left lower quadrant palpable mass COMPARISON: CT abdomen from 06/29/2024 TECHNIQUE: Grayscale and color images in the left lower quadrant of the abdomen FINDINGS: Within the region of interest in the left lower quadrant is a solid focus with minimal internal vascularity measuring 4.5 x 1.2 x 4.0 cm, nonspecific. US/US pelvic limited IMPRESSION: Within the region of interest in the left lower quadrant is a solid focus with minimal internal vascularity measuring 4.5 x 1.2 x 4.0 cm, nonspecific. Electronically signed by: Marci Morales MD 07/28/2024 04:22 PM EDT RP Dictated By: Marci Morales MD Signed By: <Electronically signed by Marci Morales MD in [facility]> 07/28/24 1622 DD/ 1538 TD/TT: 07/20/24 1540 Business Applications Manager: Previous visits and workups and discussions with Dr. Louis were all reviewed as well as well as past visits and discussion of menses pre Mirena. Assessment & Plan Assessment & Plan (1) History of ovulatory pain: Code(s): Z87.42 - Personal history of other diseases of the female genital tract Category: Medical (2) Counseling for control, intrauterine device: Code(s): Z30.09 - Encounter for other general counseling and advice on contraception Category: Medical (3) Hx of endometriosis: Code(s): Z87.42 - Personal history of other diseases of the female genital tract Category: Medical (4) History of 2 sections: Code(s): Z98.891 - History of uterine scar from previous surgery Category: Surgical (5) IUD (intrauterine device) in place: Comment: Inserted January of 2024; removed 08/17/2024 at patient's strong request. Code(s): Z97.5 - Presence of (intrauterine) contraceptive device Category: Medical (6) Encounter for IUD removal: Code(s): Z30.432 - Encounter for removal of intrauterine contraceptive device Category: Medical (7) Muscle mass: Comment: endometriosis Code(s): M62.89 - Other specified disorders of muscle Category: Medical (8) Endometriosis of the anterior abdominal wall, unspecified depth: Code(s): N80.C19 - Endometriosis of the anterior abdominal wall, unspecified depth Category: Surgical (9) Endometriosis: Code(s): N80.9 - Endometriosis, unspecified Category: Medical Plan Patient is here because she called yesterday for an appointment to have her Mirena IUD removed it was inserted in January to do help deal with her 2 weeks misery with her periods offset by 2 weeks that she felt fine in her periods she has a long-term history of endometriosis proven, and she recently had a biopsy of a mass that showed that there was endometriosis on the muscle mass. She was sent to general surgery with a view towards removal of the endometriosis and she says she discussed it with the surgeon and she decided yet she did not want any surgery. However she is miserable with the Mirena she says now instead of having 2 weeks of misery she has spotting and lingering symptoms that last longer and she is absolutely begging to have it taken out today she has her period today and she absolutely wants it taken out I informed the patient that I did not think that this is a pulido course of action for her to remove the Mirena IU S without a very detailed plan that would have to be made with fire extinguisher sprinkler inspector to discuss what else she would do to manage her endometriosis. She insists that she will either take Tylenol or Motrin and live with it and she is begging to have the Mirena taken out today. Please see discussions in HPI and plan as well patient was very clear after discussion and before it as well that she wanted have the Mirena removed she is not happy with the changes to her cycles and feels like she is uncomfortable more of the time now than she was even when she was in misery for 2 weeks of her of the month. She has a longstanding history of endometriosis please see the previous notes with Dr. Louis regarding this. Patient was insistent she wanted to have the Mirena removed today her periods started last Tuesday she will use condoms she will take either Tylenol or ibuprofen for pain she is ready to accept worsening of her cycle again. Speculum was placed patient is at the end of her menses with dark brown clotty material in cervix and coming from os Mirena string easily visible in os extending about 1-2 cm from cervix.. Strings were grasped with ring forceps and when patient gave a cough on the count of 3 the IUD was easily removed the patient is happy. I shared with her that if she has any other complications of her endometriosis she would be advised to seek recommendations from fire extinguisher sprinkler inspector and not by me as the medications that are otherwise used for endometriosis have other side effects and full discussion good need to take place with him. Orders: Orders AMB IUD Insertion/Removal - Patient Supply Today M62.89 - Other specified disorders of muscle, N80.9 - Endometriosis, unspecified, N80.C19 - Endometriosis of the anterior abdominal wall, unspecified depth, Z30.09 - Encounter for other general counseling and advice on contraception, Z30.432 - Encounter for removal of intrauterine contraceptive device, Z87.42 - Personal history of other diseases of the female genital tract, Z97.5 - Presence of (intrauterine) contraceptive device, Z98.891 - History of uterine scar from previous surgery Coding Level of Care Code Est Pt Level 3 (84043) Diagnoses History of ovulatory pain Z87.42 Counseling for control, intrauterine device Z30.09 Hx of endometriosis Z87.42 History of 2 sections Z98.891 IUD (intrauterine device) in place Z97.5 Encounter for IUD removal Z30.432 Muscle mass M62.89 Endometriosis of the anterior abdominal wall, unspecified depth N80.C19 Endometriosis N80.9 CPT Codes Details - CPT: 90727-POX Removal ([id number])
[2024-08-17 14:40] VITALS: BP 122/72; BMI 24.0
== END 2024-08-17 16:31 | disposition home or self-care (01) ==
PROVIDERS: PCP Family Medicine; Visit Provider Advanced Practice Midwife
DX: Z30.432 Encounter for removal of intrauterine contraceptive device (principal)
CPT/HCPCS: 58301

== ENCOUNTER → 2024-08-17 14:19 | Outpatient (BNVA) | payer MEDICARE, MEDICAID, SELFPAY | PROVIDERS: PCP Family Medicine; Visit Provider Advanced Practice Midwife | DX: M62.89 Other specified disorders of muscle (principal); N80.C19 Endometriosis of the anterior abdominal wall, unspecified depth; Z30.432 Encounter for removal of intrauterine contraceptive device; Z87.42 Personal history of other diseases of the female genital tract; Z98.891 History of uterine scar from previous surgery | CPT/HCPCS: 58301 ==

== ENCOUNTER 2025-03-15 11:37 | Outpatient (REF) | payer MEDICARE, MEDICAID, SELFPAY ==
--- OUTSIDE RECORDS SUMMARY | 2025-03-15 12:34 | XMS_ITS | Encounter Summary ---
Author Organization [facility] Address [address] [place] [address] Care Team Providers Care Steam [employer] Records Clerk Name Role Phone Mary Danielson DO Primary Care Provider [phone] Reason for Visit * Reason Onset Date Comments Call Back Request 07/12/2024 Encounter Details Date Type Department Care Team ([facility] Contact Info) Description 07/12/2024 Telephone [facility] [address] [place] [address] Mary Danielson DO [address] [place] [address] Call Back Request Social History Tobacco Use Types Packs/Day Years Used Date Smoking Tobacco: Never Passive Smoke Exposure: Never Smokeless Tobacco: Never Depression Answer Date Recorded Patient Health Questionnaire-9 Score 2 05/18/2024 Patient Health Questionnaire-9 Score 2 05/18/2024 Last PHQ-9: Questionnaire Data Not on file 0 05/18/2024 Housing Stability Answer Date Recorded What is your housing situation today? I have mario terrell 05/18/[address] you li ve. Do you have problems with any of the following? None of the above 05/18/2024 Food Insecurity Answer Date Recorded Within the past 12 months, y ou worried that your food would run out before you got money to buy more: Never True 05/18/2024 Within the past 12 months,th e food you bought just didn't last and you didn't have enough money to get more: Never True 03/2024 Transportation Answer Date Recorded In the past 12 months, has l ack of transportation kept you from medical appts, meetings, work or from getting things needed for daily living? No 05/18/2024 Utilities Answer Date Recorded In the past 12 months, has t he electric, gas, oil or water company threatened to shut off services in your home? No 05/18/2024 Depression Answer Date Recorded Patient Health Questionnaire-2 Score 0 05/18/2024 Internet Access Answer Date Recorded Internet Access Q1 Yes 07/16/2024 Internet Access Q2 Not on file 07/16/2024 Comments Unknown Sex and Gender Information Value Date Recorded Sex Assigned at Female 09/13/2022 10:18 AM EDT Legal Sex Female 10:18 AM EDT Gender Identity Female 09/13/2022 10:18 AM EDT Sexual Orientation Straight 09/13/2022 10 :18 AM EDT documented as of this encounter Miscellaneous Notes * Telephone Encounter - Rakesh Garsia - 07/12/2024 2:45 PM EDT Tc from patient requesting a call back to get clarification on why the appt on 07/18 was cancelled documented in this encounter Plan of Treatment Not on file documented as of this encounter Visit Diagnoses Not on filedocumented in this encounter Additional Health Concerns Assessment Noted Time PHQ-9 Depression Total Score: 2 05/18/20 24 10:52 AM EDT documented as of this encounter Care Teams Steam [employer] Records Clerk Relationship Specialty Start Date End Date Mary Danielson DO [address] [place] [id number] PCP - General Family Medicine 11/14/18 documented as of this encounter
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
--- OUTSIDE RECORDS SUMMARY | 2025-03-15 12:34 | XMS_ITS | Encounter Summary ---
Author Organization [facility] Address [address] [place] [address] Care Team Providers Care Liquor Blender Name Role Phone Mary Danielson DO Primary Care Provider Encounter Details Date Type Department Care Team (Latest Contact Info) Description 03/15/2025 11:00 AM EDT Office Visit [facility] [address] [place] [address] Mary Danielson DO [address] [place] [address] PTSD (post-traumatic stress disorder) (Primary Dx); Healthcare maintenance; Other specified anxiety disorders; Encounter for screening for cardiovascular disorders; Vitamin D deficiency, unspecified; Abnormal finding of blood chemistry, unspecified; Encounter for screening for other viral diseases; Encounter for screening for infections with a predominantly sexual mode of transmission; Other fatigue Social History Tobacco Use Types Packs/Day Years Used Date Smoking Tobacco: Never Passive Smoke Exposure: Never Smokeless Tobacco: Never Alcohol Use Standard Drinks/Week Comments Never 0 (1 standard drink = 0.6 oz pur e alcohol) Depression Answer Date Recorded Patient Health Questionnaire-9 [...] Access Q2 Not on file 07/16/2024 Comments No Sex and Gender Information Value Date Recorded Sex Assigned at Female 09/13/2022 10:18 AM EDT Legal Sex Female 10:18 AM EDT Gender Identity Female 09/13/2022 10:18 AM EDT Sexual Orientation Straight 09/13/2022 10 :18 AM EDT documented as of this encounter Last Filed Vital Signs Vital Sign Reading Time Taken Comments Blood Pressure 124/70 03/15/2025 10:47 AM EDT Pulse 88 03/15/2025 10:47 AM EDT Temperature 36.8 ??C (98.3 ??F) 03/15/2025 10:47 AM E DT Respiratory Rate 21 03/15/2025 10:47 AM EDT Oxygen Saturation 100% 03/15/2025 10:47 AM EDT Inhaled Oxygen Concentration - - Weight 60.8 kg (134 lb) 03/15/2025 10:47 AM EDT Height 157.5 cm (5' 2 ) 03/15/2025 10:47 AM EDT Body Mass Index 24.51 03/15/2025 10:47 AM EDT documented in this encounter Plan of Treatment Scheduled Orders Name Type Priority Associated Diagnoses Orde r Schedule T4, Free Lab Routine PTSD (post-traumatic stress disorder) Healthcare maintenance Other specified anxiety disorders Expected: 03/15/2025 (Approximate), Expires: 03/15/2026 Lipid Panel, Standard Lab Routine PTSD (post-traumatic stress disorder) Healthcare maintenance Encounter for screening for cardiovascular disorders Expected: 03/15/2025 (Approximate), Expires: 03/15/2026 TSH Lab Routine PTSD (post-traumatic stress disorder) Healthcare maintenance Other specified anxiety disorders Expected: 03/15/2025 (Approximate), Expires: 03/15/2026 Vitamin D, 25-Hydroxy, Total, Immunoassay Lab Routine PTSD (post-traumatic stress disorder) Healthcare maintenance Vitamin D deficiency, unspecified Expected: 03/15/2025 (Approximate), Expires: 03/15/2026 Hepatic Function Panel Lab Routine PTSD (post-traumatic stress disorder) Healthcare maintenance Expected: 03/15/2025 (Approximate), Expires: 03/15/2026 Hemoglobin A1c Lab Routine PTSD (post-traumatic stress disorder) Healthcare maintenance Abnormal finding of blood chemistry, unspecified Expected: 03/15/2025 (Approximate), Expires: 03/15/2026 CBC Lab Routine PTSD (post-traumatic stress disorder) Healthcare maintenance Expected: 03/15/2025, Expires: 03/15/2026 Basic Metabolic Panel Lab Routine PTSD (post-traumatic stress disorder) Healthcare maintenance Expected: 03/15/2025 (Approximate), Expires: 03/15/2026 Hepatitis B surface antigen, EIA Lab Routine PTSD (post-traumatic stress disorder) Healthcare maintenance Encounter for screening for other viral diseases Expected: 03/15/2025 (Approximate), Expires: 03/15/2026 Chlamydia/N. Gonorrhoeae RNA, TMA, Urogenitial Microbiology Routine PTSD (post-traumatic stress disorder) Healthcare maintenance Encounter for screening for infections with a predominantly sexual mode of transmission Ordered: 03/15/2025 HIV-1/2 Antigen and Antibodies, Fourth Generation, with Reflexes Lab Routine PTSD (post-traumatic stress disorder) Healthcare maintenance Other fatigue Expected: 03/15/2025 (Approximate), Expires: 03/15/2026 Hepatitis C Antibody with Reflex to HCV, RNA, Quantitative, Real-Time PCR Lab Routine PTSD (post-traumatic stress disorder) Healthcare maintenance Expected: 03/15/2025, Expires: 03/15/2026 RPR (Monitor) with Reflex to??Titer Lab Routine PTSD (post-traumatic stress disorder) Healthcare maintenance Encounter for screening for infections with a predominantly sexual mode of transmission Expected: 03/15/2025, Expires: 03/15/2026 Hepatitis B Surface Antibody, Qualitative Lab Routine PTSD (post-traumatic stress disorder) Healthcare maintenance Encounter for screening for other viral diseases Expected: 03/15/2025 (Approximate), Expires: 03/15/2026 documented as of this encounter Visit Diagnoses Diagnosis PTSD (post-traumatic stress disorder)- Primary Posttraumatic stress disorder Healthcare maintenance Other specified anxiety disorders Encounter for screening for cardiovascular disorders Vitamin D deficiency, unspecified Abnormal finding of blood chemistry, unspecified Encounter for screening for other viral diseases Encounter for screening for infections with a predominantly sexual mode of transmission Other fatigue documented in this encounter Additional Health Concerns Assessment Noted Time PHQ-9 Depression Total Score: 2 05/18/20 24 10:52 AM EDT documented as of this encounter Care Teams Liquor Blender Relationship Specialty Start Date End Date Mary Danielson DO [address] [place] [address] PCP - General Family Medicine 11/14/18 documented as of this encounter
--- OUTSIDE RECORDS SUMMARY | 2025-03-15 12:34 | XMS_ITS | Encounter Summary ---
Author Organization [employer] Address [address] [place] [address] Care Team Providers Care Retail Pharmacy Technician Name Role Phone Mary Danielson Primary Care Provider [phone] Encounter Details Date Type Department Care Team (Latest Contact Info) Description 03/15/2025 Travel Social History Tobacco Use Types Packs/Day Years [...] AM EDT documented as of this encounter Plan of Treatment Not on file documented as of this encounter Visit Diagnoses Not on filedocumented in this encounter Additional Health Concerns Assessment Noted Time PHQ-9 Depression Total Score: 2 05/18/20 24 10:52 AM EDT documented as of this encounter Care Teams Retail Pharmacy Technician Relationship Specialty Start Date End Date Mary Danielson DO [address] [place] [address] PCP - General Family Medicine 11/14/18 documented as of this encounter
--- OUTSIDE RECORDS SUMMARY | 2025-03-15 12:34 | XMS_ITS | Encounter Summary ---
Author Organization [facility] Address [address] [facility] [address] [place] [address] Care Team Providers Care Hot Metal Mixer Operator Helper Name Role Phone RoderickMary white Primary Care Provider [phone] Encounter Details Date Type Department Care Team (Late st Contact Info) Description 08/17/2023 Abstract [facility] [address] [place] [address] Ai Luong Social History Tobacco Use Types Packs/Day Years Used Date Smoking Tobacco: Never Passive Smoke Exposure: Never Smokeless Tobacco: Never Depression Answer Date Recorded Patient Health Questionnaire-9 Score 2 02/23/2023 Depression Answer Date Recorded Patient Health Questionnaire-2 Score 0 02/23/2023 Comments Unknown Sex and Gender Information Value Date Recorded Sex Assigned at Female 09/13/2022 10:18 AM EDT Legal Sex Female 10:18 AM EDT Gender Identity Female 09/13/2022 10:18 AM EDT Sexual Orientation Straight 09/13/2022 10 :18 AM EDT documented as of this encounter Plan of Treatment Not on file documented as of this encounter Procedures Procedure Name Priority Date/Time Associated Diagnosis Comments PAP/HPV Routine 12/18/2020 documented in this encounter Results * Pap Smear (12/18/2020) Pap Negative for intraephithelial lesion or malignancy Negative for intraephithelial lesion or malignancy, Other HPV Undetected us Historical Provider HEALTH MAINTENANCE Final Result documented in this encounter Visit Diagnoses Not on filedocumented in this encounter Additional Health Concerns Assessment Noted Time PHQ-9 Depression Total Score: 2 02/24/20 23 9:36 AM EDT documented as of this encounter Care Teams Hot Metal Mixer Operator Helper Relationship Specialty Start Date End Date Mary Danielson DO [address] [place] [address] PCP - General Family Medicine 11/14/18 documented as of this encounter
--- OUTSIDE RECORDS SUMMARY | 2025-03-15 12:34 | XMS_ITS | Clinical Summary ---
Author Organization [employer] Address [address] [place] [address] Care Team Providers Care Wooden Box Maker Name Role Phone JagjitMary Primary Care Provider [phone] Allergies Active Allergy Reactions Criticality Noted Date Comments Sesame Seed (Diagnostic) 01/13/2023 Other reaction(s): sesame seeds- anaphylaxis Medications D3 50 MCG (1999 UT) tablet Take by mouth in the morning. 11/23/2022 Active pantoprazole (ProtoNix) 40 MG EC tablet Take 1 tablet (40 mg) by mouth before breakfast. 30 tablet 11 02/21/2024 Active sertraline (Zoloft) 50 MG tabletIndicatio ns:PTSD (post-traumatic stress disorder) Take 1 tablet (50 mg) by mouth Once per day. 30 tablet 2 06/06/2024 5 Active hydrOXYzine pamoate (Vistaril) 50 MG capsuleIndicati ons:PTSD (post-traumatic stress disorder) Take 1 capsule (50 mg) by mouth every 6 (six) hours if needed for anxiety. 30 capsule 2 06/06/2024 5 Active Active Problems Problem Noted Date Diagnosed Date Endometriosis 02/21/2024 Chronic gastroesophageal reflux disease 02/24/20 23 PTSD (post-traumatic stress disorder) 02/23/2023 Anxiety 01/13/2023 Melasma 01/13/2023 Eczema 2018 Irritable bowel syndrome 10/02/2015 Major depression, recurrent, chronic 10/02/2015 Splenomegaly 10/02/2015 Resolved Problems Problem Noted Date Diagnosed Date Resolved Date Depression 01/13/2023 02/23/2023 Gastroesophageal reflux disease 10/02/2015 02/23/2023 Encounters Date Type Department Care Team Description 03/15/2025 11:00 AM EDT Office Visit [facility] [address] [place] [phone] Mary Danielson DO PTSD (post-traumatic stress disorder) (Primary Dx); Healthcare maintenance; Other specified anxiety disorders; Encounter for screening for cardiovascular disorders; Vitamin D deficiency, unspecified; Abnormal finding of blood chemistry, unspecified; Encounter for screening for other viral diseases; Encounter for screening for infections with a predominantly sexual mode of transmission; Other fatigue 03/15/2025 Travel from Last 3 Months Immunizations Name Administration Dates Next Due Influenza injectable quadriv alent IIV4 with preservative 08/17/2016,10/02/2015 Influenza injectable quadriv alent preservative free 09/13/2022,01/24/2020,12/24/2014 Influenza, Split (incl. jensen fied surface antigen) 08/18/2012 Moderna Covid-19 Vaccine 12+ 04/15/2021,03/17/20 21 TD (adult), 2 Lf tetanus tox oid, preservative free, adsorbed 06/11/2008 Tdap 05/30/2014 Family History Medical History Relation Name Comments Diabetes Father Breast cancer Maternal Cousin 1 Gastric cancer Maternal Cousin 2 Heart disease Maternal Grandfather Hypertension Mother Breast cancer Mother's Sister Diabetes Paternal Grandmother Relation Name Status Comments Father Maternal Cousin 1 Maternal Cousin 2 Alive Maternal Grandfather Mother Mother's Sister Paternal Grandmother Social History Tobacco Use Types Packs/Day Years Used Date Smoking Tobacco: Never Passive Smoke Exposure: Never Smokeless Tobacco: Never Tobacco Cessation:Counseling Given: Not Answered Alcohol Use Standard Drinks/Week Comments Never 0 [...] Orientation Straight 09/13/2022 10 :18 AM EDT Last Filed Vital Signs Vital Sign Reading [...] Mass Index 24.51 03/15/2025 10:47 AM EDT Plan of Treatment Health Maintenance Due Date Last Done Comments Family Planning (PISQ) 1998 Hepatitis B Vaccines (1 of 3 - 19+ 3-dose series) 2002 DTaP/Tdap/Td Vaccines (2 - Td or Tdap) 05/30/2024 05/30/2014, 06/11/2008 COVID-19 Vaccine ( season) 2024 04/15/2021, 03/17/2021 Influenza Vaccine (#1) 2024 2, 01/24/2020, 08/17/2016, Additional history exists Depression Screening 05/18/2025 05/18/2024, 05/18/20 24 SDOH Screening 05/18/2025 05/18/2024 Cervical Cancer Screening 12/18/2025 HPV/Cotest 12/18/2025 12/18/2020, 02/0 02/2021, 12/18/2020 Pap Smear 12/18/2025 12/18/2020 Mammogram 03/13/2026 03/13/2024 Alcohol/Substance Use Screening 03/15/2026 03/15/2025 Tobacco Screening 03/15/2026 03/15/2025 Zoster Vaccines (1 of 2) 2033 RSV Patients and Patients Aged 60 years or older (1 - 1-dose 75+ series) 2058 HIV Screening Completed 02/23/2023, 06/23/2020 Hepatitis C Screening Completed 02/23/2023, 020 HIB Vaccines Aged Out No longer eligi ble based on patient's age to complete this topic HPV Vaccines Aged Out No longer eligi ble based on patient's age to complete this topic Hepatitis A Vaccines Aged Out No long er eligible based on patient's age to complete this topic IPV Vaccines Aged Out No longer eligi ble based on patient's age to complete this topic Meningococcal Vaccine Aged Out No ramya chava eligible based on patient's age to complete this topic Pneumococcal Vaccine: Pediatrics (0 to 5 Years) and At-Risk Patients (6 to 49) Years) Aged Out No longer eligible based on patient's age to complete this topic RSV under 20 months Aged Out No longe r eligible based on patient's age to complete this topic Rotavirus Vaccines Aged Out No longer eligible based on patient's age to complete this topic Procedures Procedure Name Priority Date/Time Associated Diagnosis Comments BI MAMMOGRAM SCREENING TOMOSYNTHESIS BILATERAL Routine 03/13/2024 2:54 PM EDT HEPATITIS C AB W/RFL RNA, PCR W/RFL GENOTYPE,LIPA Routine 02/23/2023 10:15 AM EDT Encounter for routine adult health examination without abnormal findings HIV 1/2 ANTIGEN/ANTIBODY, FOURTH GENERATION W/RFL Routine 02/23/2023 10:15 AM EDT Encounter for routine adult health examination without abnormal findings HM PAP/HPV Routine 12/18/2020 from Last 3 Months or Most Recently Relevant to Health Maintenance Results * BI Mammogram Screening Tomosynthesis Bilateral (03/13/2024 2:54 PM EDT) Anatomical Region Laterality Modality Breast Bilateral Mammography 03/13/2024 2:54 PM EDT Narrative 04/10/2024 11:02 AM EDT ? [facility] ? [address] ?[place] [address] ? Mammography Report ? Signed ? Patient: Radha Gil ?MR#: ?? [id number] ? : 1985 ?Acct:[id number] ? Age/Sex: 38 / F ?ADM Date: 03/13/24 ? Loc: HO.MAMMO ? Attending Dr: Mary A Jagjit DO ? Ordering Physician: Jagjit,Mary A DO ?Results: 1N ?? egative ? Date of Service: 03/13/24 ?Follow Up: 1 Year From Orig ?? inal Mammogram ? Procedure(s): MM tomosynthesis screening BI ?? Accession Number(s): [id number] ? cc: Mary Danielson DO ? EXAMINATION: ?? MM SCREENING DIGITAL BREAST TOMOSYNTHESIS, BILATERAL ? CLINICAL INFORMATION: ? Screening. Asymptomatic. ? COMPARISON: ?? Mammography: There are no prior mammograms for comparison. ? TECHNIQUE: ?? Digital breast tomosynthesis is performed in both the craniocaudal and ?? mediolateral oblique views along with computer-aided detection (CAD). ?? Synthesized 2D images are generated from the tomosynthesis. ? FINDINGS: ?? The breasts are heterogeneously dense, which may obscure small masses ?? (ACR BI-RADS breast composition Category c). ? There are no significant masses, abnormal calcifications, or other ?? abnormalities. ? MM/MM tomosynthesis screening BI ?? IMPRESSION: ?? No mammographic evidence of malignancy. ? ASSESSMENT: ? BI-RADS BI-RADS 1 - Negative ? RECOMMENDATION: ?? Routine annual mammography screening. ? 1 year F/U ? This examination should not preclude the clinical evaluation of a ?? suspicious palpable abnormality. ? This patient's information was entered into a reminder system with a ?? target due date for their next mammogram. ? Dictated By: ?Colleen Lock MD ? Signed By: ?<Electronically signed by Colleen Lock MD in OV> ? 04/10/24 1058 ? DD/ 1454 ? TD/TT: ? Pretzel Packer: ? Procedure Note Shirley, Image - 04/10/2024 [facility] [address] [place] [address] Dr. Bagley, MALINA [address] Mammography Report Signed Patient: Radha Gil MMR#: [id number] : 1985Acct:[id number] Age/Sex: 38 / FADM Date: 03/13/24 Loc: [facility] Attending Dr: Mary Danielson DO Ordering Physician: Mary Danielson DORanselmoults: 1N egative Date of Service: 03/13/24Follow Up: 1 Year From [facility] ina Mammogram Procedure(s): MM tomosynthesis screening BI Accession Number(s): [id number] cc: Mary Danielson DO EXAMINATION: MM SCREENING DIGITAL BREAST TOMOSYNTHESIS, BILATERAL CLINICAL INFORMATION: Screening. Asymptomatic. COMPARISON: Mammography: There are no prior mammograms for comparison. TECHNIQUE: Digital breast tomosynthesis is performed in both the craniocaudal and mediolateral oblique views along with computer-aided detection (CAD). Synthesized 2D images are generated from the tomosynthesis. FINDINGS: The breasts are heterogeneously dense, which may obscure small masses (ACR BI-RADS breast composition Category c). There are no significant masses, abnormal calcifications, or other abnormalities. MM/MM tomosynthesis screening BI IMPRESSION: No mammographic evidence of malignancy. ASSESSMENT: BI-RADS BI-RADS 1 - Negative RECOMMENDATION: Routine annual mammography screening. 1 year F/U This examination should not preclude the clinical evaluation of a suspicious palpable abnormality. This patient's information was entered into a reminder system with a target due date for their next mammogram. Dictated By: Colleen Lock MD Signed By: <Electronically signed by Colleen Lock MD in OV> 04/10/24 1058 DD/ 1454 TD/TT: Pretzel Packer: Mary Danielson DO [facility] BI PROCEDURES Final Resu lt * Hepatitis C Antibody with Reflex to HCV RNA,PCR w/Reflex to Genotype, LiPA (02/23/2023 10:15 AM EDT) Hepatitis C Antibody NON-REACT KRUNAL NON-REACT KRNUAL [facility] Index 0.05 <1.00 [facility] Comment: HCV antibody was non-reactive. There is no laboratory evidence of HCV infection. In most cases, no further action is required. However, if recent HCV exposure is suspected, a test for HCV RNA (test code 66355) is suggested. For additional information, please refer to http://Metricly.Frolik/faq/DVU867 (This link is being provided for informational/ educational purposes only.) 02/23/2023 10:1 5 AM EDT 02/23/2023 10:15 AM EDT Narrative [facility] - 02/24/2023 6:12 PM EDT FASTING:NO FASTING: NO Mary Danielson DO LAB BLOOD ORDERABLES Final R esult [facility] [address], [place] [address] [facility] [address] [place] [address] * HIV-1/2 Antigen and Antibodies, Fourth Generation, with Reflexes (02/23/2023 10:15 AM EDT) HIV Antigen/Antibody, 4th Generation NON-REAC TIVE NON-REAC TIVE [facility] Comment: HIV-1 antigen and HIV-1/HIV-2 antibodies were not detected. There is no laboratory evidence of HIV infection. PLEASE NOTE: This information has been disclosed to you from records whose confidentiality may be protected by state law. ??If your state requires such protection, then the state law prohibits you from making any further disclosure of the information without the specific written consent of the person to whom it pertains, or as otherwise permitted by law. A general authorization for the release of medical or other information is NOT sufficient for this purpose. ?? For additional information please refer to http://Metricly.WOWIO.[employer] (GeckoCap)/faq/AZK072 (This link is being provided for informational/ educational purposes only.) The performance of this assay has not been clinically validated in patients less than 2 years old. Blood Venous blood specimen / Unknown 02/23/2023 10:15 AM EDT 02/23/2023 10:15 AM EDT Narrative [facility] - 02/24/2023 6:12 PM EDT FASTING:NO FASTING: NO Mary Jurcsak DO LAB BLOOD ORDERABLES Final R esult [facility] [address], [place] [address] [facility] [address] [place] [address] * Hm Pap Smear (12/18/2020) Pap Negative for intraephithelial lesion or malignancy Negative for intraephithelial lesion or malignancy, Other HPV Undetected us Historical Provider HEALTH MAINTENANCE Final Result from Last 3 Months or Most Recently Relevant to Health Maintenance Insurance [place] [address] [employer] MED[employer] Care Teams Wooden Box Maker Relationship Specialty Start Date End Date Mary Danielson DO [address] [place] [address] PCP - General Family Medicine 11/14/18
[2025-03-15 13:45] LABS: Hematocrit 38.1 % (37.0-47.0); Hemoglobin 12.7 g/dl (12.0-16.0); Mean Corpuscular HGB Conc 33.3 g/dl (31.0-35.0); Mean Corpuscular Hemoglobin 29.6 pg (27.0-33.0); Mean Corpuscular Volume 88.8 fL (80.0-98.0); Mean Platelet Volume 10.8 fL (9.4-12.3); Platelet Count 185 X10*3/uL (160-400); Red Blood Count 4.29 X10*6/uL (4.20-5.50); Red Cell Distribution Width 12.6 % (11.0-16.0); White Blood Count 4.6 X10*3/uL (4.8-10.8)
[2025-03-15 13:49] LABS: Estimated Average Glucose 94 mg/dL; Hemoglobin A1C 100.9422 umol/L; Hemoglobin A1c % 4.9 % (<6.0)
[2025-03-15 14:25] LABS: HBS Num1 0.09 mIU/mL (0-7.99); HBsAGNum1 0.31 S/CO (0.00-0.99); HIV AB/AG Nonreactive (Nonreactive); HIV Num 1 0.05 S/CO (0.00-0.99); Hepatitis B Surface Antigen Negative (Negative); ~Hepatitis B Surface Antibody NONREACTIVE (Nonreactive); ~Hepatitis C Antibody Nonreactive (Nonreactive)
[2025-03-15 16:25] LABS: CT PCR NOT DETECTED (Not Detect.); NG PCR NOT DETECTED (Not Detect.)
[2025-03-15 16:32] LABS: Alanine Aminotransferase 63 U/L (0-31); Albumin Level 4.6 g/dL (3.5-5.0); Anion Gap 14 (12-20); Aspartate Amino Transferase 44 U/L (5-31); Bilirubin Direct 0.2 mg/dL (0.0-0.5); Bilirubin Total 0.5 mg/dL (0.0-1.0); Blood Urea Nitrogen 9 mg/dL (9-16); Calcium 10.1 mg/dL (8.4-10.2); Carbon Dioxide 26 mmol/L (22-29); Chloride 104 mmol/L (96-108); Cholesterol 184 mg/dL (<200); Estimated Glomerular Filt Rate > 60; Glucose Random 75 mg/dL (60-115); HDL Cholesterol 53 mg/dL (>40); LDL Cholesterol Calculated 114 mg/dL (<100); Potassium 4.2 mmol/L (3.3-5.1); Sodium 140 mmol/L (135-145); Total Protein 7.1 g/dL (6.5-8.0); Triglycerides 85 mg/dL (<150)
[2025-03-15 16:50] LABS: Alkaline Phosphatase 87 U/L (39-117)
[2025-03-15 16:57] LABS: Free T4 (Free Thyroxine) 1.02 ng/dL (0.71-1.85); Thyroid Stimulating Hormone 0.74 uIU/mL (0.32-4.0); Vitamin D 25-OH Total 32.4 ng/mL (>30)
[2025-03-17 18:08] LABS: RPR Rapid Plasma Reagin NON-REACTIVE (NON-REACTIVE)
== END 2025-03-15 11:38 | disposition home or self-care (01) ==
LOC: HO.HHCL 11:37
PROVIDERS: Visit Provider Family Medicine
DX: Z00.00 Encounter for general adult medical examination without abnormal findings (principal); F43.10 Post-traumatic stress disorder, unspecified; Z13.6 Encounter for screening for cardiovascular disorders; E55.9 Vitamin D deficiency, unspecified; R53.83 Other fatigue; Z11.3 Encounter for screening for infections with a predominantly sexual mode of transmission; F41.8 Other specified anxiety disorders; Z11.59 Encounter for screening for other viral diseases; R79.9 Abnormal finding of blood chemistry, unspecified; Z72.89 Other problems related to lifestyle
CPT/HCPCS: 80048; 80061; 80076; 82306; 83036; 84439; 84443; 85027; 86592; 86706; 86803; 87340; 87389; 87491; 87591

== ENCOUNTER 2025-10-16 15:21 | Outpatient (AMB) | payer MEDICARE, MEDICAID, SELFPAY ==
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
--- NOTE | 2025-10-16 15:40 | MHC.OFFVIS ---
Vital Signs 10/16/25 15:49 Height 5 ft 2 in Weight 132 lb BMI 24.1 BP 112/64 Intake Visit Reasons: pelvic pain It Quality Assurance Analyst Required: Yes It Quality Assurance Analyst Language: Assurance Sourcing Manager Services: It Quality Assurance Analyst Present (in person) It Quality Assurance Analyst Name: Roxie AVILA Information Interpreted: non-clinical & clinical Planer Setup Operator: Planer Setup Operator Present (Roxie AVILA) Accompanied by: Self / Same As Patient Allergies No Known Allergies Allergy (Unknown, Verified 10/16/25 15:45) HPI Comments Details: Presenting complaining of worsening of her left lower quadrant pain. 08/07 ultrasound of the left lower quadrant showed the following: IMPRESSION: Within the region of interest in the left lower quadrant is a solid focus with minimal internal vascularity measuring 4.5 x 1.2 x 4.0 cm, nonspecific. The patient was referred to general surgery and was scheduled for excision of left lower quadrant muscle mass possible endometriosis but changed her mind [facility] Medical History Cervical cancer screening History of gallbladder disease delivery delivered Melasma Splenomegaly Gastroesophageal reflux Irritable bowel Dermatitis Depression Surgical History Hx of eye surgery Family History Mother HTN (hypertension) Father Diabetes Maternal Aunt Family history of breast cancer in female Maternal Aunt Family history of breast cancer in female Social History Household Members: Spouse and Children Housing: House Are you a primary manager managed care to a significant other at home: No Do you presently have visiting nurse or other home services: No Alcohol intake: never Patient Tobacco Use Status: Never used Tobacco service: No Current occupational status: unemployed Gender identity: Female Female Reproductive History Menstrual Age of Menarche: 11 Review of Systems Const All systems reviewed & are unremarkable except as noted in HPI and below Physical Exam Vital Signs: Last Vital Signs BP 112/64 10/16/25 15:49 BMI result Body Mass Index 24.1 General: Yes no CVA tenderness External Female Exam: normal external appearance and normal appearance of the urethra Speculum Exam - Vagina: normal appearance of the vagina, normal palpation, no lesions and no masses Speculum Exam - Cervix: normal appearance of the cervix, normal palpation, no lesions, no masses and nontender Bimanual exam- vagina & uterus: normal bimanual exam, normal palpation, uterine size normal, normal palpation, uterine shape normal, No Cervical tenderness present and non-tender Bimanual Exam- Adnexa, other: normal adnexae Back/Spine/Pelvis Back: no CVA tenderness Results AMB Test Urine AMB Test Urine Negative Last Edit by Roxie Pedro, OVERCASTER on 10/16/25 16:10 AMB Urinalysis Dipstick UR Leukocytes Negative Last Edit by Roxie Sheffieldero, OVERCASTER on 10/16/25 16:10 UR Nitrite Negative Last Edit by Roxie Sheffieldero, OVERCASTER on 10/16/25 16:10 UR Urobilinogen Normal Last Edit by Roxie Sheffieldero, OVERCASTER on 10/16/25 16:10 UR Protein Negative Last Edit by Roxie Sheffieldero, OVERCASTER on 10/16/25 16:10 UR Ph 6.0 Last Edit by Roxie Sheffieldero, OVERCASTER on 10/16/25 16:10 UR Blood Negative Last Edit by Roxie Sheffieldero, OVERCASTER on 10/16/25 16:10 UR Specific Holley 1.020 Last Edit by Roxie Pedro, OVERCASTER on 10/16/25 16:10 UR Ketone Negative Last Edit by Roxie Pedro, OVERCASTER on 10/16/25 16:10 UR Bilirubin Negative Last Edit by Roxie Pedro, OVERCASTER on 10/16/25 16:10 UR Glucose Negative Last Edit by Roxie Sheffieldero, OVERCASTER on 10/16/25 16:10 Assessment & Plan Assessment & Plan (1) Pelvic pain: Code(s): R10.2 - Pelvic and perineal pain Category: Medical Plan: Urine dip and test done in the office were both negative. GC and chlamydia taken and pelvic ultrasound ordered. Discussed with the patient the differential diagnosis of pelvic pain including but not limited to adnexal, uterine masses, pelvic infections (PID), GI the (Irritable bowel syndrome, diverticulitis, others), musculoskeletal, myofascial pain abdominal wall , adhesions, endometriosis, psychological and others causes. Will check results and treat accordingly. All questions answered, the patient verbalized understanding. Instructed the patient to schedule an ultrasound and a follow-up appointment in 2 weeks. All questions answered, the patient verbalized understanding and agreed with the plan. (2) Endometriosis of the anterior abdominal wall, unspecified depth: Code(s): N80.C19 - Endometriosis of the anterior abdominal wall, unspecified depth Category: Surgical Plan: Will check ultrasound results and treat accordingly Orders: Orders US pelvic and transvaginal Today N80.C19 - Endometriosis of the anterior abdominal wall, unspecified depth, R10.20 - Pelvic and perineal pain unspecified side AMB HCG Urine Test Today Z32.02 - Encounter for test, result negative AMB Urinalysis Dipstick Today Z32.02 - Encounter for test, result negative Coding Level of Care Code Est Pt Level 3 (29967) Diagnoses Pelvic pain R10.2 Endometriosis of the anterior abdominal wall, unspecified depth N80.C19
[2025-10-16 15:49] VITALS: BP 112/64; BMI 24.1
--- OUTSIDE RECORDS SUMMARY | 2025-10-16 18:22 | XMS_ITS | Encounter Summary ---
Author Organization [employer] Address [address] [place] [address] Care Team Providers Care Airplane Tester Name Role Phone Mary Danielson DO Primary Care Provider + [phone] Reason for Visit * Reason Onset Date Comments Call Back Request 07/12/2024 Encounter Details Date Type Department Care Team ([facility] Contact Info) Description 07/12/2024 Telephone [facility] [address] [place], [place] [phone] Mary Danielson DO [address] [place] [address] Call Back Request Social History Tobacco Use [...] documented as of this encounter Care Teams Airplane Tester Relationship Specialty Start Date End Date Mary Danielson DO [address] [place] [phone] PCP - General Family Medicine 11/14/18 documented as of this encounter
--- OUTSIDE RECORDS SUMMARY | 2025-10-16 18:22 | XMS_ITS | Encounter Summary ---
Author Organization [employer] Address [address] [place] [address] Care Team Providers Care Adjunct Mathematics Instructor Name Role Phone Mary Danielson DO Primary Care Provider + [phone] Reason for Visit * Reason Onset Date Comments Nurse Triage 07/16/2025 Encounter Details Date Type Department Care Team ([facility] st Contact Info) Description 07/16/2025 Telephone [facility] [address] [place], [place] [phone] Mary Danielson DO [address] [place] [address] Nurse Triage Social History Tobacco Use Types Packs/Day Years [...] encounter Miscellaneous Notes * Telephone Encounter - Mimi Croft - 07/16/2025 1:11 PM EDT Symptom: Dizziness Outcome: Schedule an urgent appointment (within 4 hours) or talk to a nurse or provider soon Reason: Started within the past 3 days The caller accepted this outcome. Contact pt at [phone] (uruguayan) documented in this encounter Plan of Treatment Not on file documented as of this encounter Visit Diagnoses Not on filedocumented in this encounter Additional Health Concerns Assessment Noted Time PHQ-9 Depression Total Score: 2 05/18/20 24 10:52 AM EDT documented as of this encounter Care Teams Adjunct Mathematics Instructor Relationship Specialty Start Date End Date Mary Danielson DO [address] [place] [address] PCP - General Family Medicine 11/14/18 documented as of this encounter
--- OUTSIDE RECORDS SUMMARY | 2025-10-16 18:22 | XMS_ITS | Clinical Summary ---
Author Organization [employer] Address [address] [facility] [address] [place] [address] Care Team Providers Care Merchandiser Seasonal Name Role Phone Mary Danielson DO Primary Care Provider [phone] Allergies Active Allergy Reactions Criticality Noted Date Comments Sesame Seed (Diagnostic) 01/13/2023 Other reaction(s): sesame seeds- anaphylaxis Medications * This document contains information received from the source organization and may not represent a complete record from that organization. pantoprazole (ProtoNix) 40 MG EC tablet Take 1 tablet (40 mg) by mouth before breakfast. 30 tablet 11 03/15/2025 6 Active D3 50 MCG (2000 UT) tablet Take 2,000 Units by mouth Once per day. 30 tablet 11 03/15/2025 6 Active Active Problems Problem Noted Date Diagnosed Date Endometriosis 02/21/2024 Chronic gastroesophageal reflux disease 02/24/20 23 PTSD (post-traumatic stress disorder) 02/23/2023 Anxiety 01/13/2023 Melasma 01/13/2023 Eczema 2018 Irritable bowel syndrome 10/02/2015 Major depression, recurrent, chronic 10/02/2015 Splenomegaly 10/02/2015 Resolved Problems Problem Noted Date Diagnosed Date Resolved Date Depression 01/13/2023 02/23/2023 Gastroesophageal reflux disease 10/02/2015 02/23/2023 Encounters Date Type Department Care Team Description 09/25/2025 3:30 PM EST Office Visit [facility] [address] [place] [address] Mary Danielson DO PTSD (post-traumatic stress disorder) (Primary Dx); Endometriosis; Chronic gastroesophageal reflux disease; Melasma; Breast pain, right; Healthcare maintenance; Dietary counseling; Exercise counseling; Encounter for screening mammogram for malignant neoplasm of breast 09/25/2025 Travel 09/24/2025 Telephone [facility] [address] [place] [phone] Mary Danielson DO Chart Prep 09/24/2025 Travel from Last 3 Months Immunizations Immunization Administration Dates Next Due Influenza injectable quadriv [...] Answer Date Recorded Patient Health Questionnaire-9 Score 0 09/25/2025 Patient Health Questionnaire-9 Score 0 09/25/2025 Last PHQ-9: Questionnaire Data Not on file 1 11/25/2024 Housing Stability Answer Date Recorded What is your housing situation today? I have mario terrell 09/25/[address] you li ve. Do you have problems with any of the following? None of the above 09/25/2025 Food Insecurity Answer Date Recorded Within the past 12 months, y ou worried that your food would run out before you got money to buy more: Never True 09/25/2025 Within the past 12 months,th e food you bought just didn't last and you didn't have enough money to get more: Never True 10/2025 Transportation Answer Date Recorded In the past 12 months, has l ack of transportation kept you from medical appts, meetings, work or from getting things needed for daily living? No 09/25/2025 Utilities Answer Date Recorded In the past 12 months, has t he electric, gas, oil or water company threatened to shut off services in your home? No 09/25/2025 Depression Answer Date Recorded Patient Health Questionnaire-2 Score 0 09/25/2025 Internet Access Answer Date Recorded Internet Access Q1 Yes 09/25/2025 Internet Access Q2 Not on file 09/25/2025 Comments No Sex and Gender Information Value Date Recorded Sex Assigned at Female 09/13/2022 10:18 AM EDT Legal Sex Female 10:18 AM EDT Gender Identity Female 09/13/2022 10:18 AM EDT Sexual Orientation Straight 09/13/2022 10 :18 AM EDT Last Filed Vital Signs Vital Sign Reading Time Taken Comments Blood Pressure 124/70 09/25/2025 3:54 PM EST Pulse 85 09/25/2025 3:54 PM EST Temperature 36.9 C (98.4 F) 09/25/2025 3:54 PM EST Respiratory Rate 19 09/25/2025 3:54 PM EST Oxygen Saturation 99% 09/25/2025 3:54 PM EST Inhaled Oxygen Concentration - - Weight 61.7 kg (136 lb) 09/25/2025 3:54 PM EST Height 157.5 cm (5' 2 ) 09/25/2025 3:54 PM EST Body Mass Index 24.87 09/25/2025 3:54 PM EST Plan of Treatment Health Maintenance Due Date Last Done Comments Family Planning (PISQ) 1998 HPV Vaccines (1 - 3-dose series) 1998 Hepatitis B Vaccines (1 of 3 - 19+ 3-dose series) 2002 DTaP/Tdap/Td Vaccines (2 - Td or Tdap) 05/30/2024 05/30/2014, 06/11/2008 COVID-19 Vaccine (3 - season) 2025 04/15/2021, 03/17/2021 Influenza Vaccine (#1) 2025 2, 01/24/2020, 08/17/2016, Additional history exists Cervical Cancer Screening 12/18/2025 HPV/Cotest 12/18/2025 12/18/2020, 020 02/2021, 12/18/2020 Pap Smear 12/18/2025 12/18/2020 Mammogram 03/13/2026 03/13/2024 Alcohol/Substance Use Screening 03/15/2026 03/15/2025 Disability Screening 03/15/2026 03/15/2025 Depression Screening 09/25/2026 09/25/2025, 09/25/20 25 SDOH Screening 09/25/2026 09/25/2025 Tobacco Screening 09/25/2026 09/25/2025 Zoster Vaccines (1 of 2) 2033 RSV Patients and Patients Aged 60 years or older (1 - 1-dose 75+ series) 2058 HIV Screening Completed 03/15/2025, 02/12, 06/23/2020 Hepatitis C Screening Completed 03/15/2025 , 02/23/2023, 06/23/2020 HIB Vaccines Aged Out No longer eligi ble based on patient's age to complete this topic Hepatitis A Vaccines Aged Out No long er eligible based on patient's age to complete this topic IPV Vaccines Aged Out No longer eligi ble based on patient's age to complete this topic Meningococcal B Vaccine Aged Out No l onger eligible based on patient's age to complete this topic Meningococcal Vaccine Aged Out No ramya chava eligible based on patient's age to complete this topic Pneumococcal Vaccine: Pediatrics (0 to 5 Years) and At-Risk Patients (6 to 49) Years Aged Out No longer eligible based on patient's age to complete this topic RSV under 20 months Aged Out No longe r eligible based on patient's age to complete this topic Rotavirus Vaccines Aged Out No longer eligible based on patient's age to complete this topic Procedures Procedure Name Priority Date/Time Associated Diagnosis Comments HEPATITIS C AB W/REFL TO HCV RNA, QN, PCR Routine 03/15/2025 11:40 AM EDT PTSD (post-traumatic stress disorder) Healthcare maintenance HIV 1/2 ANTIGEN/ANTIBODY, FOURTH GENERATION W/RFL Routine 03/15/2025 11:40 AM EDT PTSD (post-traumatic stress disorder) Healthcare maintenance Other fatigue BI MAMMOGRAM SCREENING TOMOSYNTHESIS BILATERAL Routine 03/13/2024 2:54 PM EDT HM PAP/HPV Routine 12/18/2020 from Last 3 Months or Most Recently Relevant to Health Maintenance Results * Hepatitis C Antibody with Reflex to HCV, RNA, Quantitative, Real-Time PCR (03/15/2025 11:40 AM EDT) Hepatitis C Antibody Nonreactive Nonreactive [facility] Comment:Antibodies to HCV no t detected; does not exclude early acuteHCV infection. Blood Venous blood specimen / Unknown 03/15/2025 11:40 AM EDT 03/15/2025 1:29 PM EDT Mary Danielson DO LAB BLOOD ORDERABLES Final R esult [facility] [address] [place] [phone] * HIV-1/2 Antigen and Antibodies, Fourth Generation, with Reflexes (03/15/2025 11:40 AM EDT) HIV AB/AG Nonreactive Nonreactive [facility] Comment:HIV-1 p24 Ag and/or HIV-1/HIV-2 Ab not detected.A test result that is nonreactive does not exclude thepossibility of exposure to or infection with HIV-1 and/orHIV-2. Nonreactive results in this assay for individualswith prior exposure to HIV-1 and/or HIV-2 may be due toantigen and antibody levels that are below the limit ofdetection of this assay.The [employer] HIV Ag/Ab Combo assay result andsupplemental assay results should be interpreted inconjunction with the patient's clinical presentation,history and other laboratory results. If the results areinconsistent with clinical evidence, additional testing issuggested to confirm the result. Blood Venous blood specimen / Unknown 03/15/2025 11:40 AM EDT 03/15/2025 1:29 PM EDT Mary Danielson DO LAB BLOOD ORDERABLES Final R esult [facility] [address] [place] [phone] [phone] * BI Mammogram Screening Tomosynthesis Bilateral (03/13/2024 2:54 PM EDT) Anatomical Region Laterality Modality Breast Bilateral Mammography 03/13/2024 2:54 PM EDT Narrative 04/10/2024 11:02 AM EDT [facility] [address] [place] [address] Mammography Report Signed Patient: Radha Gil MR#: [id number] : 1985 Acct:[id number] Age/Sex: 38 / F ADM Date: 03/13/24 Loc: HO.MAMMO Attending Dr: Mary Danielson DO Ordering Physician: Mary Danielson DO Results: 1N egative Date of Service: 03/13/24 Follow Up: 1 Year From Orig [facility] Mammogram Procedure(s): MM tomosynthesis screening BI Accession Number(s): [id number] cc: Mary Danielson DO EXAMINATION: MM SCREENING [...] in OV> 04/10/24 1058 DD/ 1454 TD/TT: Identification Officer: Procedure Note Donotuseinterpreter, Image - 04/10/2024 [facility] [address] [place] [address] Mammography Report Signed Patient: Radha Gil MMR#: [id number] : 1985Acct:[id number] Age/Sex: 38 / FADM Date: 03/13/24 Loc: [facility] Attending Dr: Mary Danielson DO Ordering Physician: Mary Danielsonults: 1N egative Date of Service: 03/13/24Follow Up: 1 Year From Orig inal Mammogram Procedure(s): MM tomosynthesis screening BI Accession Number(s): [id number] cc: Mary Danielson DO EXAMINATION: MM SCREENING [...] in OV> 04/10/24 1058 DD/ 1454 TD/TT: Identification Officer: us Mary Jagjit DO IMG BI PROCEDURES Final Resu lt * Hm Pap Smear (12/18/2020) Pap Negative for intraephithelial lesion or malignancy Negative for intraephithelial lesion or malignancy, Other HPV Undetected Historical Provider HEALTH MAINTENANCE Final Result from Last 3 Months or Most Recently Relevant to Health Maintenance [place] [address] [place] [address] [employer] MEDICARE Care Teams Merchandiser Seasonal Relationship Specialty Start Date End Date Mary Danielson DO [address] [place] [address] PCP - General Family Medicine 11/14/18
--- OUTSIDE RECORDS SUMMARY | 2025-10-16 18:23 | XMS_ITS | Encounter Summary ---
Author Organization [employer] Address [address] [facility] [address] [place] [address] Care Team Providers Care Newspaper Carriers Supervisor Name Role Phone RoderickMary white Primary Care Provider + [phone] Encounter Details Date Type Department Care Team (Late st Contact Info) Description 08/17/2023 Abstract [facility] [address] [place] [address] Ai Luong Social History Tobacco Use Types [...] Noted Time PHQ-9 Depression Total Score: 2 04/12/20 23 9:36 AM EDT documented as of this encounter Care Teams Newspaper Carriers Supervisor Relationship Specialty Start Date End Date Mary Danielson DO [address] [place] [address] PCP - General Family Medicine 11/14/18 documented as of this encounter
== END 2025-10-16 16:27 | disposition home or self-care (01) ==
LOC: HO.HWS 15:22
PROVIDERS: PCP Family Medicine; Visit Provider Obstetrics & Gynecology
DX: R10.20 Pelvic and perineal pain unspecified side (principal); N80.C19 Endometriosis of the anterior abdominal wall, unspecified depth; Z32.02 Encounter for pregnancy test, result negative
CPT/HCPCS: 99213

== ENCOUNTER 2025-10-16 15:21 | Outpatient (REF) | payer MEDICARE, MEDICAID, SELFPAY ==
[2025-10-16 23:30] LABS: CT PCR NOT DETECTED (Not Detect.); NG PCR NOT DETECTED (Not Detect.)
== END 2025-10-16 15:22 | disposition home or self-care (01) ==
LOC: HO.LNP 15:21
PROVIDERS: PCP Family Medicine; Visit Provider Obstetrics & Gynecology
DX: N80.C19 Endometriosis of the anterior abdominal wall, unspecified depth (principal); R10.20 Pelvic and perineal pain unspecified side; Z32.02 Encounter for pregnancy test, result negative; Z20.2 Contact with and (suspected) exposure to infections with a predominantly sexual mode of transmission
CPT/HCPCS: 81002; 81025; 87491; 87591; 99212